=== PATIENT | male | born 1965 | race African-American/Black ===

== ENCOUNTER 2019-06-17 22:54 | Inpatient (IN) | payer MEDICARE, MEDICAID ==
[~2019-06-17] VITALS: Ht 167.6 cm; Wt 117.2 kg
[~2019-06-17 22:54] MED LIST: GLIP5TAB12 PO
[2019-06-17] MEDS ORDERED: FUROSEMIDE 40MG/4ML VIAL IV ONE (23:15)
[2019-06-17] MEDS ORDERED: ASPIRIN 81MG TABLET PO ONE (23:15)
[2019-06-17 23:56] LABS: BASOPHILS % 0.5 % (0.0-2.0); EOSINOPHILS % 2.1 % (0.0-5.0); HEMATOCRIT. 29.6 % (42.0-52.0); HEMOGLOBIN. 10.3 g/dL (14.0-18.0); LYMPHOCYTES % 13.3 % (20.0-50.0); MEAN CORPUSCULAR HEMOGLOBIN 30.2 pg (28.0-32.0); MEAN CORPUSCULAR VOLUME 87.1 fL (80.0-94.0); MEAN PLATELET VOLUME 7.6 fl (7.4-10.4); MONOCYTES % 8.5 % (2.0-8.0); NEUTROPHILS % 75.6 % (40.0-76.0); PLATELET 405 x1000/uL (130-400); RED CELL DISTRIBUTION WIDTH 13.6 % (11.6-14.6)
[2019-06-18] VITALS (7 sets, daily range): BP systolic 156–211; BP diastolic 86–114
[2019-06-18] LABS: CHLORIDE 113 mEq/L (98-107)
[2019-06-18 00:03] LABS: INR 0.9; PARTIAL THROMBOPLASTIN TIME 24.7 sec (23.4-31.0); PROTHROMBIN TIME 9.8 sec (9.6-11.0)
[2019-06-18 00:04] LABS: ETHANOL BLOOD < 10 mg/dL
[2019-06-18] MEDS ORDERED: HYDRALAZINE 20MG/ML VIAL IV ONE (01:45)
[2019-06-18 01:47] LABS: CLARITY URINE CLEAR (CLEAR); COLOR URINE YELLOW (YELLOW); KETONES URINE NEGATIVE (NEGATIVE); LEUKOCYTE ESTERASE URINE NEGATIVE (NEGATIVE); NITRITE URINE NEGATIVE (NEGATIVE); OCCULT BLOOD URINE 2+ (NEGATIVE); PROTEIN URINE 4+ (NEGATIVE); SPECIFIC GRAVITY URINE 1.014 (1.005-1.030); UROBILINOGEN URINE 0.2 E.U./dL (0.2-1.0)
[2019-06-18 02:14] LABS: *AMPHETAMINES SCREEN URINE NEGATIVE (NEGATIVE); *BARBITURATES SCREEN URINE NEGATIVE (NEGATIVE); *BENZODIAZEPINES SCREEN URINE NEGATIVE (NEGATIVE); *COCAINE SCREEN URINE NEGATIVE (NEGATIVE)
[2019-06-18 02:15] LABS: CANNABINOID URINE SCREEN NEGATIVE (NEGATIVE); METHADONE URINE SCREEN NEGATIVE (NEGATIVE); OPIATES URINE SCREEN NEGATIVE (NEGATIVE); PHENCYCLIDINE URINE SCREEN NEGATIVE (NEGATIVE)
[2019-06-18] MEDS ORDERED: HYDR25TA PO (04:56)
[2019-06-18] MEDS ORDERED: INSU100I38 SQ (04:56)
[2019-06-18] MEDS ORDERED: CLOP75TA33 PO (04:56)
[2019-06-18] MEDS ORDERED: GEMF600T5 PO (04:56)
[2019-06-18] MEDS ORDERED: CHOL100022 PO (04:56)
[2019-06-18] MEDS ORDERED: PY25 PO (04:56)
[2019-06-18] MEDS ORDERED: AMLO5TAB88 PO (04:56)
[2019-06-18] MEDS ORDERED: VALS160T28 PO (04:56)
[2019-06-18] MEDS ORDERED: FOLI-43 PO (04:56)
[2019-06-18] MEDS ORDERED: ATOR20TA65 PO (04:56)
[2019-06-18] MEDS ORDERED: METF-415 PO (04:56)
[2019-06-18] MEDS ORDERED: HYDROCODONE/ACETAMINOPHEN 5/325MG TABLET PO PRN (05:30)
[2019-06-18] MEDS ORDERED: DEXTROSE 50% WATER 50ML SYRINGE IV PRN (05:30)
[2019-06-18] MEDS: BLOOD SUGAR DIAGNOSTIC STRIP TEST SCH ×4 (06:22→20:54)
[2019-06-18 08:33] LABS: BASOPHILS % 0.7 % (0.0-2.0); CREATINE KINASE 658 IU/L (39-308); EOSINOPHILS % 2.3 % (0.0-5.0); HEMATOCRIT. 31.4 % (42.0-52.0); HEMOGLOBIN. 10.9 g/dL (14.0-18.0); LYMPHOCYTES % 13.2 % (20.0-50.0); MEAN CORPUSCULAR HEMOGLOBIN 30.3 pg (28.0-32.0); MEAN CORPUSCULAR VOLUME 87.1 fL (80.0-94.0); MEAN PLATELET VOLUME 7.8 fl (7.4-10.4); NEUTROPHILS % 74.8 % (40.0-76.0); PLATELET 392 x1000/uL (130-400); RED CELL DISTRIBUTION WIDTH 13.6 % (11.6-14.6)
[2019-06-18 08:34] LABS: CREATINE KINASE MB FRACTION 3.4 ng/mL (0.5-3.6)
[2019-06-18] MEDS: FUROSEMIDE 40MG/4ML VIAL IVP SCH ×2 (08:44→17:09)
[2019-06-18] MEDS: HEPARIN 5000 UNITS/ML VIAL SUBCUT SCH ×2 (08:52→20:55)
[2019-06-18] MEDS: INSULIN LISPRO 100 UNITS/ML SUBCUT SCH ×4 (08:56→21:14)
[2019-06-18] MEDS ORDERED: AMLODIPINE 5MG TABLET PO SCH (09:00)
[2019-06-18] MEDS: ASPIRIN 81MG EC TABLET PO SCH (09:33)
[2019-06-18] MEDS: POTASSIUM CHLORIDE 20MEQ TABLET SR PO SCH (09:33)
[2019-06-18] MEDS: LISINOPRIL 2.5MG TABLET PO SCH (09:34)
[2019-06-18 17:06] LABS: CREATINE KINASE MB FRACTION 3.2 ng/mL (0.5-3.6); T4 FREE 0.89 ng/dL (0.76-1.46)
[2019-06-18] MEDS: HYDRALAZINE 20MG/ML VIAL IV PRN (17:09)
[2019-06-19] VITALS: BP 155/87
[2019-06-19 06:25] VITALS: BP 203/112
[2019-06-19] MEDS: HYDRALAZINE 20MG/ML VIAL IV PRN (06:27)
[2019-06-19 07:13] VITALS: BP 177/96
[2019-06-19] MEDS: BLOOD SUGAR DIAGNOSTIC STRIP TEST SCH ×4 (07:13→20:42)
[2019-06-19 07:49] LABS: BASOPHILS % 0.5 % (0.0-2.0); EOSINOPHILS % 2.9 % (0.0-5.0); HEMATOCRIT. 32.5 % (42.0-52.0); HEMOGLOBIN. 11.2 g/dL (14.0-18.0); LYMPHOCYTES % 16.7 % (20.0-50.0); MEAN CORPUSCULAR HEMOGLOBIN 30.1 pg (28.0-32.0); MEAN CORPUSCULAR VOLUME 87.9 fL (80.0-94.0); MEAN PLATELET VOLUME 8.1 fl (7.4-10.4); MONOCYTES % 7.5 % (2.0-8.0); NEUTROPHILS % 72.4 % (40.0-76.0); PLATELET 413 x1000/uL (130-400); RED CELL DISTRIBUTION WIDTH 13.4 % (11.6-14.6)
[2019-06-19] MEDS ORDERED: CLONIDINE 0.1MG TABLET PO PRN (08:00)
[2019-06-19] MEDS: FUROSEMIDE 40MG/4ML VIAL IVP SCH ×2 (09:03→18:34)
[2019-06-19] MEDS: IBUPROFEN 800MG TABLET PO PRN ×2 (09:03→20:35)
[2019-06-19] MEDS: HEPARIN 5000 UNITS/ML VIAL SUBCUT SCH ×2 (09:03→20:35)
[2019-06-19] MEDS: POTASSIUM CHLORIDE 20MEQ TABLET SR PO SCH (09:04)
[2019-06-19] MEDS: AMLODIPINE 5MG TABLET PO SCH ×2 (09:04→20:35)
[2019-06-19] MEDS: INSULIN LISPRO 100 UNITS/ML SUBCUT SCH ×4 (09:06→21:01)
[2019-06-19] MEDS: ASPIRIN 81MG EC TABLET PO SCH (09:07)
[2019-06-19] MEDS: LISINOPRIL 2.5MG TABLET PO SCH (09:07)
[2019-06-19 12:00] VITALS: BP 155/75
[2019-06-19 16:00] VITALS: BP 172/66
[2019-06-19 20:00] VITALS: BP 162/77
[2019-06-20] VITALS: BP 164/96
[2019-06-20 04:00] VITALS: BP 169/87
[2019-06-20] MEDS: BLOOD SUGAR DIAGNOSTIC STRIP TEST SCH (07:19)
[2019-06-20 08:00] VITALS: BP 152/73
[2019-06-20] MEDS: FUROSEMIDE 40MG/4ML VIAL IVP SCH (08:55)
[2019-06-20] MEDS: IBUPROFEN 800MG TABLET PO PRN (08:58)
[2019-06-20] MEDS: HEPARIN 5000 UNITS/ML VIAL SUBCUT SCH (08:59)
[2019-06-20] MEDS: AMLODIPINE 5MG TABLET PO SCH (08:59)
[2019-06-20] MEDS: ASPIRIN 81MG EC TABLET PO SCH (08:59)
[2019-06-20] MEDS: LISINOPRIL 2.5MG TABLET PO SCH (08:59)
[2019-06-20] MEDS: POTASSIUM CHLORIDE 20MEQ TABLET SR PO SCH (08:59)
[2019-06-20] MEDS: INSULIN LISPRO 100 UNITS/ML SUBCUT SCH (09:01)
[2019-06-20] MEDS ORDERED: LISI2.5T47 PO (10:51)
[2019-06-20] MEDS ORDERED: ASPI-1158 PO ×2 (10:51→11:05)
[2019-06-20] MEDS ORDERED: FURO40TA5 MT ×2 (10:51→11:05)
[2019-06-20] MEDS ORDERED: AMLO10TA80 MT ×2 (10:51→11:05)
[2019-06-20] MEDS ORDERED: LISI2.5T47 MT (11:05)
[2019-06-20 11:20] VITALS: BP 152/115
== END 2019-06-20 12:00 | disposition home health service (06) | DRG 291 ==
LOC: ER 22:54 → EDBEDREQ 06-18 01:00 → 6WST 06-18 01:40 → EDBEDREQ 06-18 01:43 → EDBEDREQTM 06-18 01:43 → ENRESERV 06-18 03:15
PROVIDERS: ADMIT Internal Medicine; ATTEND Internal Medicine
DX: I13.0 Hypertensive heart and chronic kidney disease with heart failure and stage 1 through stage 4 chronic kidney disease, or unspecified chronic kidney disease (principal); I50.43 Acute on chronic combined systolic (congestive) and diastolic (congestive) heart failure; E44.1 Mild protein-calorie malnutrition; Z68.41 Body mass index [BMI] 40.0-44.9, adult; E11.22 Type 2 diabetes mellitus with diabetic chronic kidney disease; E03.9 Hypothyroidism, unspecified; I25.10 Atherosclerotic heart disease of native coronary artery without angina pectoris; N18.9 Chronic kidney disease, unspecified; I50.82 Biventricular heart failure; F31.9 Bipolar disorder, unspecified; N50.819 Testicular pain, unspecified; E66.09 Other obesity due to excess calories; F41.9 Anxiety disorder, unspecified; Z79.4 Long term (current) use of insulin; Z86.73 Personal history of transient ischemic attack (TIA), and cerebral infarction without residual deficits; Z82.49 Family history of ischemic heart disease and other diseases of the circulatory system; Z82.41 Family history of sudden cardiac death; Z88.0 Allergy status to penicillin
CPT/HCPCS: 36415; 71045; 80048; 80053; 80061; 80305; 80320; 81003; 82550; 82553; 82962; 83735; 83880; 84439; 84443; 84481; 84484; 85025; 93005; 93306; 93970; 96374; 96375; 99285; J0360; J1644; J1815; J1940; G0480

== ENCOUNTER 2021-07-02 22:37 | Inpatient (IN) | payer MEDICARE, MEDICAID ==
[~2021-07-02] VITALS: Ht 167.6 cm; Wt 85.3 kg
[~2021-07-02 22:37] MED LIST changes: +AMLO10TA80 MT; +ASPI-1406 PO; +ATOR20TA65 PO; +CHOL100022 PO; +CLOP75TA33 PO; +FOLI-43 PO; +FURO40TA5 MT; +GEMF600T90 PO; +INSU100I38 SQ; +LISI2.5T47 MT; +METF-415 PO; +PY25 PO; +VALS160T28 PO
[2021-07-02] MEDS ORDERED: ENALAPRIL 2.5MG/2ML VIAL 2ML IV ONE (23:00)
[2021-07-02] MEDS ORDERED: ENALAPRIL 1.25MG/ML VIAL 1ML IV NR (23:30)
[2021-07-03 00:13] LABS: BG BASE EXCESS -5.4 mmol/L (-2.0-2.0); BG CARBOXYHEMOGLOBIN 1.6 % (0.5-1.5); BG DEOXYHEMOGLOBIN 56.2 % (0.0-5.0); BG FRACTION INSPIRED OXYGEN 36; BG HCO3 ACT 20.6 mmol/L (22.0-26.0); BG METHEMOGLOBIN 0.3 % (0.0-1.5); BG OXYGEN SATURATION 42.7 % (92.0-98.5); BG OXYHEMOGLOBIN 41.9 % (94.0-97.0); BG PCO2 42.7 mmHg (35.0-45.0); BG PH 7.302 (7.350-7.450); BG PO2 < 30.3 mmHg (75.0-100.0); BG TOTAL HEMOGLOBIN 9.5 g/dL (12.0-18.0); BG VENT MODE NASAL CANNULA
[2021-07-03] MEDS ORDERED: MEROPENEM 1,000 MG in SODIUM CHLORIDE 0.9% 100 ML IV ONE (00:15)
[2021-07-03] MEDS ORDERED: VANCOMYCIN 1 G PREMIX 200 ML IV ONE (00:15)
[2021-07-03 00:46] LABS: HEMATOCRIT. 22.4 % (42.0-52.0); HEMOGLOBIN. 7.2 g/dL (14.0-18.0); MEAN CORPUSCULAR HEMOGLOBIN 28.9 pg (28.0-32.0); MEAN CORPUSCULAR VOLUME 89.4 fL (80.0-94.0); MEAN PLATELET VOLUME 7.7 fl (7.4-10.4); PLATELET 335 x1000/uL (130-400); RED BLOOD CELL COUNT 2.51 mill/uL (4.7-6.1); RED CELL DISTRIBUTION WIDTH 14.2 % (11.6-14.6)
[2021-07-03 00:54] LABS: CHLORIDE 108 mEq/L (98-107)
[2021-07-03 02:45] LABS: PLATELET ESTIMATE NORMAL
[2021-07-03] MEDS ORDERED: HYDRALAZINE 20MG/ML VIAL IV PRN (04:45)
[2021-07-03] MEDS ORDERED: CLONIDINE 0.2MG TABLET PO SCH (05:00)
[2021-07-03] MEDS ORDERED: AZITHROMYCIN 500 MG in DEXT 5% WATER 250 ML IV SCH (08:30)
[2021-07-03] MEDS ORDERED: ACETAMINOPHEN 325MG TABLET PO PRN (08:30)
[2021-07-03] MEDS ORDERED: ONDANSETRON HCL 4MG/2ML INJ IV PRN (08:30)
[2021-07-03] MEDS ORDERED: HYDRALAZINE HCL 100MG TABLET PO ONE (08:30)
[2021-07-03] MEDS ORDERED: FUROSEMIDE 100MG/10ML VIAL IVP NR (08:58)
[2021-07-03] MEDS ORDERED: SODIUM POLYSTYRENE SULFONATE 15 G/60 ML BOT PO NR (08:58)
[2021-07-03] MEDS ORDERED: NIFEDIPINE XL 60MG TAB PO SCH (09:00)
[2021-07-03] MEDS ORDERED: DEXTROSE 50% WATER 50ML SYRINGE IV NR (09:15)
[2021-07-03] MEDS ORDERED: INSULIN REGULAR (HUMULIN R) UD 100 UNITS/ML SYR IV NR (10:00)
[2021-07-03] MEDS ORDERED: CEFTRIAXONE 1,000 MG in DEXTROSE 5% WATER 50 ML IV SCH ×2 (10:00→16:00)
[2021-07-03 12:00] VITALS: BP 186/97
[2021-07-03] MEDS ORDERED: VANCOMYCIN 500 MG PREMIX 100 ML IV SCH (13:00)
[2021-07-03] MEDS: VANCOMYCIN 1 G PREMIX 200 ML IV NR ×2 (14:00→15:11)
[2021-07-03] MEDS: HYDRALAZINE HCL 100MG TABLET PO SCH ×2 (14:00→22:00)
[2021-07-03 14:40] VITALS: BP 186/97
[2021-07-03] MEDS: CLONIDINE 0.1MG TABLET PO SCH ×2 (15:11→22:16)
[2021-07-03 16:00] VITALS: BP 155/82
[2021-07-03] MEDS: NIFEDIPINE XL 60MG TAB PO SCH (17:58)
[2021-07-03] MEDS: LEVOFLOXACIN 500MG TABLET PO SCH (17:59)
[2021-07-03] MEDS ORDERED: IPRATROPIUM/ALBUTEROL 0.5-3(2.5)MG/3ML NEB HHN PRN (18:00)
[2021-07-03 20:00] VITALS: BP 154/70
[2021-07-03] MEDS ORDERED: EPOETIN ALFA 10000UNITS/ML VIAL SUBCUT SCH (21:00)
[2021-07-03] MEDS: IPRATROPIUM/ALBUTEROL 0.5-3(2.5)MG/3ML NEB HHN SCH (22:04)
[2021-07-04] VITALS (9 sets, daily range): BP systolic 115–145; BP diastolic 57–85
[2021-07-04] MEDS: IPRATROPIUM/ALBUTEROL 0.5-3(2.5)MG/3ML NEB HHN SCH ×4 (02:40→20:58)
[2021-07-04] MEDS: HYDRALAZINE HCL 100MG TABLET PO SCH (06:00)
[2021-07-04] MEDS: CLONIDINE 0.1MG TABLET PO SCH ×3 (06:02→21:51)
[2021-07-04 06:49] LABS: MEAN CORPUSCULAR HEMOGLOBIN 29.5 pg (28.0-32.0); MEAN CORPUSCULAR VOLUME 88.5 fL (80.0-94.0); MEAN PLATELET VOLUME 7.4 fl (7.4-10.4); PLATELET 220 x1000/uL (130-400); RED BLOOD CELL COUNT 2.02 mill/uL (4.7-6.1); RED CELL DISTRIBUTION WIDTH 14.6 % (11.6-14.6)
[2021-07-04 06:59] LABS: HEPATITIS B SURFACE ANTIGEN NEGATIVE
[2021-07-04 07:09] LABS: CHLORIDE 109 mEq/L (98-107)
[2021-07-04 07:26] LABS: PHOSPHORUS 6.4 mg/dL (2.5-4.9)
[2021-07-04] MEDS ORDERED: FUROSEMIDE 40MG/4ML VIAL IVP SCH (08:00)
[2021-07-04] MEDS ORDERED: SODIUM POLYSTYRENE SULFONATE 15 G/60 ML BOT PO SCH (08:00)
[2021-07-04 08:34] LABS: HEMATOCRIT. 17.9 % (42.0-52.0)
[2021-07-04] MEDS: NIFEDIPINE XL 60MG TAB PO SCH ×2 (09:00→21:00)
[2021-07-04] MEDS ORDERED: AZITHROMYCIN 500 MG in DEXT 5% WATER 250 ML IV SCH (09:00)
[2021-07-04] MEDS ORDERED: VANCOMYCIN 1250MG in DEXTROSE 5% WATER 250ML IV NR (14:00)
[2021-07-04] MEDS ORDERED: CHLORPROMAZINE HCL 25 MG TABLET PO PRN (16:00)
[2021-07-04 19:50] LABS: HEMATOCRIT 20.9 % (42.0-52.0)
[2021-07-04 20:06] LABS: PLATELET ESTIMATE NORMAL
[2021-07-04] MEDS ORDERED: FAMOTIDINE 20MG TABLET PO SCH (23:00)
[2021-07-04] MEDS: FAMOTIDINE 20MG TABLET PO SCH (23:29)
[2021-07-05 00:01] VITALS: BP 117/75
[2021-07-05] MEDS: IPRATROPIUM/ALBUTEROL 0.5-3(2.5)MG/3ML NEB HHN SCH ×4 (01:55→21:14)
[2021-07-05 04:00] VITALS: BP 171/84
[2021-07-05] MEDS: CLONIDINE 0.1MG TABLET PO SCH ×3 (05:47→22:25)
[2021-07-05 08:00] VITALS: BP 145/63
[2021-07-05] MEDS: NIFEDIPINE XL 60MG TAB PO SCH ×2 (09:00→21:00)
[2021-07-05 10:21] LABS: BASOPHILS % 0.2 % (0.0-2.0); EOSINOPHILS % 1.9 % (0.0-5.0); HEMATOCRIT. 22.9 % (42.0-52.0); HEMOGLOBIN. 7.8 g/dL (14.0-18.0); LYMPHOCYTES % 8.2 % (20.0-50.0); MEAN CORPUSCULAR HEMOGLOBIN 30.3 pg (28.0-32.0); MEAN CORPUSCULAR VOLUME 89.1 fL (80.0-94.0); MONOCYTES % 10.1 % (2.0-8.0); NEUTROPHILS % 79.6 % (40.0-76.0); PLATELET 262 x1000/uL (130-400); RED BLOOD CELL COUNT 2.57 mill/uL (4.7-6.1); RED CELL DISTRIBUTION WIDTH 14.8 % (11.6-14.6)
[2021-07-05] MEDS: LEVOFLOXACIN 500MG TABLET PO SCH (11:15)
[2021-07-05 12:00] VITALS: BP 162/81
[2021-07-05] MEDS ORDERED: BACLOFEN 10MG TABLET PO PRN (14:15)
[2021-07-05] MEDS ORDERED: LEVO250T58 MT (14:35)
[2021-07-05 16:00] VITALS: BP 148/78
[2021-07-05 20:00] VITALS: BP 180/95
[2021-07-05] MEDS ORDERED: EPOETIN ALFA-EPBX 10,000 UNIT/ML VIAL SUBCUT SCH (21:00)
[2021-07-05] MEDS: FAMOTIDINE 20MG TABLET PO SCH (21:00)
[2021-07-06] VITALS: BP 176/69
[2021-07-06 04:00] VITALS: BP 150/87
[2021-07-06] MEDS: CLONIDINE 0.1MG TABLET PO SCH ×2 (06:00→13:21)
[2021-07-06 08:00] VITALS: BP 191/97
[2021-07-06 08:43] LABS: BASOPHILS % 0.3 % (0.0-2.0); EOSINOPHILS % 3.3 % (0.0-5.0); HEMATOCRIT. 21.1 % (42.0-52.0); HEMOGLOBIN. 7.3 g/dL (14.0-18.0); LYMPHOCYTES % 11.6 % (20.0-50.0); MEAN CORPUSCULAR HEMOGLOBIN 30.4 pg (28.0-32.0); MEAN CORPUSCULAR VOLUME 88.1 fL (80.0-94.0); MEAN PLATELET VOLUME 7.5 fl (7.4-10.4); NEUTROPHILS % 72.8 % (40.0-76.0); PLATELET 284 x1000/uL (130-400); RED CELL DISTRIBUTION WIDTH 14.3 % (11.6-14.6)
[2021-07-06 08:49] LABS: PHOSPHORUS 6.2 mg/dL (2.5-4.9)
[2021-07-06] MEDS: IPRATROPIUM/ALBUTEROL 0.5-3(2.5)MG/3ML NEB HHN SCH ×3 (08:56→14:49)
[2021-07-06] MEDS: NIFEDIPINE XL 60MG TAB PO SCH ×2 (09:00→09:23)
[2021-07-06 12:00] VITALS: BP 184/90
[2021-07-06] MEDS ORDERED: CLONIDINE 0.1MG TABLET PO PRN (13:00)
[2021-07-06 14:19] VITALS: BP 184/90
== END 2021-07-06 15:50 | disposition home or self-care (01) | DRG 871 ==
LOC: ER 22:37 → MICUSO 07-03 01:18 → EDBEDREQ 07-03 01:36 → EDBEDREQTM 07-03 01:36 → 7EST 07-03 12:17
PROVIDERS: ADMIT Internal Medicine; ATTEND Internal Medicine
PROC: 5A1D70Z Performance of Urinary Filtration, Intermittent, Less than 6 Hours Per Day (ICD-10-PCS; 2021-07-03)
PROC: 5A1D70Z Performance of Urinary Filtration, Intermittent, Less than 6 Hours Per Day (ICD-10-PCS; 2021-07-03)
PROC: 30233N1 Transfusion of Nonautologous Red Blood Cells into Peripheral Vein, Percutaneous Approach (ICD-10-PCS; principal; 2021-07-04)
PROC: 5A1D70Z Performance of Urinary Filtration, Intermittent, Less than 6 Hours Per Day (ICD-10-PCS; 2021-07-04)
PROC: 5A1D70Z Performance of Urinary Filtration, Intermittent, Less than 6 Hours Per Day (ICD-10-PCS; 2021-07-05)
DX: A41.9 Sepsis, unspecified organism (principal); J18.9 Pneumonia, unspecified organism; J96.01 Acute respiratory failure with hypoxia; N18.6 End stage renal disease; I50.43 Acute on chronic combined systolic (congestive) and diastolic (congestive) heart failure; J44.0 Chronic obstructive pulmonary disease with (acute) lower respiratory infection; E44.1 Mild protein-calorie malnutrition; I13.2 Hypertensive heart and chronic kidney disease with heart failure and with stage 5 chronic kidney disease, or end stage renal disease; I16.0 Hypertensive urgency; E11.22 Type 2 diabetes mellitus with diabetic chronic kidney disease; D64.9 Anemia, unspecified; E03.9 Hypothyroidism, unspecified; E78.5 Hyperlipidemia, unspecified; E87.5 Hyperkalemia; Z82.49 Family history of ischemic heart disease and other diseases of the circulatory system; Z99.2 Dependence on renal dialysis; Z88.0 Allergy status to penicillin; Z79.899 Other long term (current) drug therapy; Z79.4 Long term (current) use of insulin; Z68.30 Body mass index [BMI] 30.0-30.9, adult
CPT/HCPCS: 36415; 36600; 71045; 80048; 80053; 80202; 82375; 82805; 82962; 83605; 83735; 83880; 84100; 84484; 85014; 85018; 85025; 85379; 86705; 86709; 86803; 86850; 86900; 86920; 87340; 87426; 93005; 94640; 97162; 99291; J0360; J0456; J0696; J0885; J1815; J1940; J2185; J3370; J3490; J7040; J7050; J7060; P9016; Q0161; U0003; U0005

== ENCOUNTER 2021-09-28 23:32 | Emergency (ER) | payer MEDICARE, MEDICAID ==
[~2021-09-28] VITALS: Ht 175.3 cm; Wt 93.0 kg
[~2021-09-28 23:32] MED LIST changes: +LEVO250T58 MT
[2021-09-29 00:40] VITALS: BP 170/99
== END 2021-09-29 00:42 | disposition home or self-care (01) ==
LOC: ER 23:32
DX: I12.0 Hypertensive chronic kidney disease with stage 5 chronic kidney disease or end stage renal disease (principal); E11.22 Type 2 diabetes mellitus with diabetic chronic kidney disease; Z99.2 Dependence on renal dialysis; Z79.899 Other long term (current) drug therapy
CPT/HCPCS: 99283

== ENCOUNTER 2022-01-26 17:44 | Inpatient (IN) | payer MEDICARE, MEDICAID ==
[~2022-01-26] VITALS: Ht 172.7 cm; Wt 80.7 kg
[~2022-01-26 17:44] MED LIST changes: +ATOR20TA PO; -ATOR20TA65 PO; -CHOL100022 PO; +CLOP75TA15 PO; -CLOP75TA33 PO; -FURO40TA5 MT; +FURO40TA5 PO; -GEMF600T90 PO; -GLIP5TAB12 PO; -INSU100I38 SQ; +ISOS1TAB MT; +LABE200T9 PO; -LEVO250T58 MT; +LISI-186 PO; -LISI2.5T47 MT; -METF-415 PO; +SEVE800T8 PO; -VALS160T28 PO
[2022-01-26] MEDS ORDERED: MAGNESIUM/ALUMINUM HYDROXIDE/SIMETHICONE 30ML UDC PO STA (19:05)
[2022-01-26] MEDS ORDERED: FAMOTIDINE 20MG/2ML VIAL IV STA (19:05)
[2022-01-26] MEDS ORDERED: ONDANSETRON 4MG ODT PO STA (19:05)
[2022-01-26 21:09] LABS: BASOPHILS % 0.5 % (0.0-2.0); EOSINOPHILS % 1.1 % (0.0-5.0); HEMATOCRIT. 26.8 % (42.0-52.0); HEMOGLOBIN. 8.6 g/dL (14.0-18.0); LYMPHOCYTES % 8.3 % (20.0-50.0); MEAN CORPUSCULAR HEMOGLOBIN 27.9 pg (28.0-32.0); MEAN CORPUSCULAR VOLUME 87.4 fL (80.0-94.0); MEAN PLATELET VOLUME 7.3 fl (7.4-10.4); MONOCYTES % 10.4 % (2.0-8.0); NEUTROPHILS % 79.7 % (40.0-76.0); PLATELET 333 x1000/uL (130-400); RED BLOOD CELL COUNT 3.07 mill/uL (4.7-6.1); RED CELL DISTRIBUTION WIDTH 17.7 % (11.6-14.6)
[2022-01-26 21:17] LABS: INR 1.1; PROTHROMBIN TIME 11.4 sec (9.6-11.0)
[2022-01-26 21:18] LABS: CHLORIDE 99 mEq/L (98-107)
[2022-01-26] MEDS ORDERED: HYDRALAZINE 20MG/ML VIAL IV ONE (23:00)
[2022-01-26] MEDS ORDERED: MORPHINE SULFATE 4 MG/ML CPJ (NOT FOR IM USE) IV ONE (23:00)
[2022-01-26] MEDS ORDERED: METOCLOPRAMIDE HCL 10MG/2ML VIAL IV ONE (23:00)
[2022-01-27] MEDS ORDERED: HYDRALAZINE 20MG/ML VIAL IV PRN (01:30)
[2022-01-27] MEDS ORDERED: HYDROCODONE/ACETAMINOPHEN 5/325MG TABLET PO PRN (01:30)
[2022-01-27] MEDS ORDERED: CLONIDINE 0.1MG TABLET PO PRN (01:30)
[2022-01-27] MEDS ORDERED: ACETAMINOPHEN 325MG TABLET PO PRN ×2 (01:30)
[2022-01-27] MEDS ORDERED: ONDANSETRON HCL 4MG/2ML INJ IV PRN (01:30)
[2022-01-27] MEDS ORDERED: GUAIFENESIN 200MG/10ML SUGAR FREE UDC PO PRN (01:30)
[2022-01-27 05:24] LABS: BASOPHILS % 0.5 % (0.0-2.0); HEMOGLOBIN. 9.2 g/dL (14.0-18.0); LYMPHOCYTES % 11.5 % (20.0-50.0); MEAN CORPUSCULAR HEMOGLOBIN 27.8 pg (28.0-32.0); MEAN CORPUSCULAR VOLUME 87.6 fL (80.0-94.0); MONOCYTES % 12.4 % (2.0-8.0); NEUTROPHILS % 74.6 % (40.0-76.0); PLATELET 333 x1000/uL (130-400); RED BLOOD CELL COUNT 3.31 mill/uL (4.7-6.1); RED CELL DISTRIBUTION WIDTH 17.2 % (11.6-14.6)
[2022-01-27 05:43] LABS: PHOSPHORUS 7.9 mg/dL (2.5-4.9)
[2022-01-27 06:58] LABS: CLARITY URINE CLEAR (CLEAR); COLOR URINE YELLOW (YELLOW); KETONES URINE TRACE (NEGATIVE); LEUKOCYTE ESTERASE URINE NEGATIVE (NEGATIVE); NITRITE URINE NEGATIVE (NEGATIVE); OCCULT BLOOD URINE 1+ (NEGATIVE); PROTEIN URINE 4+ (NEGATIVE); SPECIFIC GRAVITY URINE 1.017 (1.005-1.030); UROBILINOGEN URINE 0.2 E.U./dL (0.2-1.0)
[2022-01-27] MEDS: SEVELAMER CARBONATE 800 MG TABLET PO SCH ×3 (07:11→20:46)
[2022-01-27] MEDS ORDERED: DEXTROSE 50% WATER 50ML SYRINGE IV NR ×2 (07:30→08:00)
[2022-01-27] MEDS ORDERED: INSULIN REGULAR (HUMULIN R) 300UNITS/3ML VIAL IV NR ×2 (07:30→08:00)
[2022-01-27] MEDS ORDERED: SODIUM POLYSTYRENE SULFONATE 15 G/60 ML BOT PO NR (08:00)
[2022-01-27] MEDS ORDERED: CALCIUM CHLORIDE 1,000 MG in DEXT 5% WATER 90 ML IV NR (08:00)
[2022-01-27] MEDS ORDERED: ALBUTEROL (0.083%) 2.5MG/3ML NEB HHN NR (08:00)
[2022-01-27] MEDS ORDERED: CALCIUM CHLORIDE 1GM/10ML SYR IV NR (08:00)
[2022-01-27] MEDS: ISOSORB DINIT/HYDRALAZINE HCL 20/37.5MG TABLET PO SCH ×2 (16:15→16:31)
[2022-01-27] MEDS: FOLIC ACID 1MG TABLET PO SCH (16:15)
[2022-01-27] MEDS: AMLODIPINE 10MG TABLET PO SCH (16:15)
[2022-01-27] MEDS: LABETALOL HCL 200MG TABLET PO SCH ×2 (16:16→21:28)
[2022-01-27] MEDS: ENOXAPARIN 30MG/0.3ML SYR SUBCUT SCH (16:16)
[2022-01-27] MEDS ORDERED: ALBUTEROL (0.083%) 2.5MG/3ML NEB ONE (16:39)
[2022-01-27] MEDS ORDERED: IPRATROPIUM BROMIDE (0.02%) 0.5MG/2.5ML NEB ONE (16:39)
[2022-01-27] MEDS ORDERED: CLONIDINE 0.1MG TABLET PO NR (19:30)
[2022-01-27] MEDS ORDERED: NALOXONE HCL 0.4MG/ML VIAL IV PRN (20:45)
[2022-01-27] MEDS: CLONIDINE 0.2MG TABLET PO SCH (22:00)
[2022-01-28] MEDS: CLONIDINE 0.1MG TABLET PO PRN ×2 (03:03→13:09)
[2022-01-28 04:00] VITALS: BP 160/90
[2022-01-28] MEDS ORDERED: ATOR20TA65 PO (05:49)
[2022-01-28] MEDS ORDERED: CLOP75TA33 PO (05:49)
[2022-01-28] MEDS ORDERED: BACL-141 PO (05:56)
[2022-01-28] MEDS ORDERED: LABE100T5 PO (05:56)
[2022-01-28] MEDS ORDERED: CLON0.1T PO (05:56)
[2022-01-28] MEDS ORDERED: HYDR-4133 PO (05:56)
[2022-01-28] MEDS: CLONIDINE 0.2MG TABLET PO SCH ×2 (06:24→13:09)
[2022-01-28 08:00] VITALS: BP 168/81
[2022-01-28] MEDS: SEVELAMER CARBONATE 800 MG TABLET PO SCH ×2 (08:21→13:05)
[2022-01-28] MEDS: AMLODIPINE 10MG TABLET PO SCH (08:21)
[2022-01-28] MEDS: FOLIC ACID 1MG TABLET PO SCH (08:21)
[2022-01-28] MEDS: LABETALOL HCL 200MG TABLET PO SCH ×2 (08:21→08:43)
[2022-01-28] MEDS: ENOXAPARIN 30MG/0.3ML SYR SUBCUT SCH ×2 (08:22→08:44)
[2022-01-28 09:35] LABS: BASOPHILS % 0.7 % (0.0-2.0); HEMATOCRIT. 29.5 % (42.0-52.0); HEMOGLOBIN. 9.6 g/dL (14.0-18.0); LYMPHOCYTES % 13.9 % (20.0-50.0); MEAN CORPUSCULAR HEMOGLOBIN 28.2 pg (28.0-32.0); MEAN CORPUSCULAR VOLUME 86.8 fL (80.0-94.0); MEAN PLATELET VOLUME 7.5 fl (7.4-10.4); NEUTROPHILS % 73.4 % (40.0-76.0); PLATELET 337 x1000/uL (130-400); RED BLOOD CELL COUNT 3.39 mill/uL (4.7-6.1); RED CELL DISTRIBUTION WIDTH 17.3 % (11.6-14.6)
[2022-01-28] MEDS ORDERED: SODIUM POLYSTYRENE SULFONATE 15 G/60 ML BOT PO SCH (10:00)
[2022-01-28 10:39] LABS: HEPATITIS B SURFACE ANTIGEN NEGATIVE
[2022-01-28 12:00] VITALS: BP 175/87
[2022-01-28] MEDS ORDERED: SODI15OR5 PO (13:39)
[2022-01-28] MEDS ORDERED: CLON0.2T PO (13:39)
[2022-01-28 13:55] VITALS: BP 156/83
== END 2022-01-28 14:50 | disposition home or self-care (01) | DRG 640 ==
LOC: ER 17:44 → MICUSO 23:50 → SUPCPDRO 01-27 01:23 → 7WST 01-27 12:43 → MICUSO 01-27 12:49 → 7WST 01-28 03:59
PROVIDERS: ADMIT Internal Medicine; ATTEND Internal Medicine
PROC: 5A1D70Z Performance of Urinary Filtration, Intermittent, Less than 6 Hours Per Day (ICD-10-PCS; principal; 2022-01-27)
DX: E87.5 Hyperkalemia (principal); N18.6 End stage renal disease; E46 Unspecified protein-calorie malnutrition; I16.1 Hypertensive emergency; I12.0 Hypertensive chronic kidney disease with stage 5 chronic kidney disease or end stage renal disease; E78.5 Hyperlipidemia, unspecified; D63.1 Anemia in chronic kidney disease; E11.22 Type 2 diabetes mellitus with diabetic chronic kidney disease; D64.9 Anemia, unspecified; Z20.822 Contact with and (suspected) exposure to COVID-19; E11.40 Type 2 diabetes mellitus with diabetic neuropathy, unspecified; E11.21 Type 2 diabetes mellitus with diabetic nephropathy; E11.319 Type 2 diabetes mellitus with unspecified diabetic retinopathy without macular edema; H54.7 Unspecified visual loss; Z91.15 Patient's noncompliance with renal dialysis; Z88.0 Allergy status to penicillin; Z82.49 Family history of ischemic heart disease and other diseases of the circulatory system; Z79.02 Long term (current) use of antithrombotics/antiplatelets; Z68.27 Body mass index [BMI] 27.0-27.9, adult; Z99.2 Dependence on renal dialysis
CPT/HCPCS: 36415; 71045; 80048; 80053; 81003; 83735; 84100; 85025; 86705; 86709; 86803; 87340; 87426; 94644; 99285; C9803; J0360; J1650; J2270; J2765; J3490; J7060; Q0162

== ENCOUNTER 2022-02-05 05:47 | Emergency (ER) | payer MEDICARE, MEDICAID ==
[~2022-02-05] VITALS: Ht 180.3 cm; Wt 91.0 kg
[~2022-02-05 05:47] MED LIST changes: -ATOR20TA PO; +ATOR20TA65 PO; +BACL-141 PO; +CLON0.2T PO; -CLOP75TA15 PO; +CLOP75TA33 PO; -FURO40TA5 PO; -ISOS1TAB MT; -LISI-186 PO; -PY25 PO; +SODI15OR5 PO
[2022-02-05 05:49] VITALS: BP 170/63
== END 2022-02-05 06:30 | disposition left against medical advice (07) ==
LOC: ER 05:56
DX: R10.30 Lower abdominal pain, unspecified (principal); E11.22 Type 2 diabetes mellitus with diabetic chronic kidney disease; I12.0 Hypertensive chronic kidney disease with stage 5 chronic kidney disease or end stage renal disease; N18.6 End stage renal disease; Z99.2 Dependence on renal dialysis; Z79.82 Long term (current) use of aspirin; Z88.0 Allergy status to penicillin
CPT/HCPCS: 99283

== ENCOUNTER 2022-03-02 03:18 | Inpatient (IN) | payer MEDICARE, MEDICAID ==
[2022-03-02] VITALS (9 sets, daily range): BP systolic 177–192; BP diastolic 62–134
[~2022-03-02] VITALS: Ht 170.2 cm; Wt 95.3 kg
[2022-03-02] MEDS ORDERED: ALBUTEROL (0.083%) 2.5MG/3ML NEB HHN STA (03:29)
[2022-03-02] MEDS ORDERED: IPRATROPIUM BROMIDE (0.02%) 0.5MG/2.5ML NEB HHN STA (03:29)
[2022-03-02] MEDS ORDERED: METHYLPREDNISOLONE SOD SUCC 125 MG/2 ML VIAL IV STA (03:29)
[2022-03-02] MEDS ORDERED: ASPIRIN 81MG TABLET PO ONE (03:30)
[2022-03-02] MEDS ORDERED: FUROSEMIDE 40MG/4ML VIAL IV ONE (03:30)
[2022-03-02] MEDS ORDERED: NITROGLYCERIN 0.4MG TABLET SL SL PRN (03:30)
[2022-03-02] MEDS ORDERED: MAGNESIUM 2 G PREMIX 50 ML IV ONE (03:30)
[2022-03-02 03:50] LABS: MEAN CORPUSCULAR HEMOGLOBIN 27.2 pg (28.0-32.0); MEAN CORPUSCULAR VOLUME 85.5 fL (80.0-94.0); MEAN PLATELET VOLUME 6.5 fl (7.4-10.4); PLATELET 327 x1000/uL (130-400); RED CELL DISTRIBUTION WIDTH 18.6 % (11.6-14.6)
[2022-03-02 03:56] LABS: HEMATOCRIT. 20.6 % (42.0-52.0); HEMOGLOBIN. 6.5 g/dL (14.0-18.0)
[2022-03-02 04:05] LABS: CHLORIDE 104 mEq/L (98-107)
[2022-03-02] MEDS ORDERED: CEFTRIAXONE 1 G PREMIX 50 ML IV NR (04:45)
[2022-03-02] MEDS ORDERED: AZITHROMYCIN 500MG/250ML 250 ML IV SCH (04:45)
[2022-03-02] MEDS ORDERED: DEXTROSE 50% WATER 50ML SYRINGE IV ONE (05:00)
[2022-03-02] MEDS ORDERED: INSULIN REGULAR (HUMULIN R) 300UNITS/3ML VIAL IV ONE (05:00)
[2022-03-02] MEDS ORDERED: FUROSEMIDE 100MG/10ML VIAL IV STA (05:00)
[2022-03-02] MEDS ORDERED: SODIUM BICARBONATE 8.4% 1 MEQ/ML 50ML SYR IV ONE (05:00)
[2022-03-02] MEDS ORDERED: ALBUTEROL (0.083%) 2.5MG/3ML NEB HHN ONE (05:00)
[2022-03-02] MEDS ORDERED: CALCIUM CHLORIDE 1GM/10ML SYR IV ONE (05:00)
[2022-03-02 06:23] LABS: PLATELET ESTIMATE NORMAL
[2022-03-02] MEDS ORDERED: HYDROCODONE/ACETAMINOPHEN 5/325MG TABLET PO PRN (08:45)
[2022-03-02] MEDS ORDERED: IPRATROPIUM/ALBUTEROL 0.5-3(2.5)MG/3ML NEB NEB PRN (08:45)
[2022-03-02] MEDS ORDERED: ACETAMINOPHEN 325MG TABLET PO PRN ×2 (08:45)
[2022-03-02] MEDS ORDERED: ONDANSETRON HCL 4MG/2ML INJ IV PRN (08:45)
[2022-03-02] MEDS ORDERED: MAGNESIUM/ALUMINUM HYDROXIDE/SIMETHICONE 30ML UDC PO PRN (08:45)
[2022-03-02] MEDS ORDERED: GUAIFENESIN 200MG/10ML SUGAR FREE UDC PO PRN (08:45)
[2022-03-02] MEDS ORDERED: HYDRALAZINE 20MG/ML VIAL IV PRN (08:45)
[2022-03-02] MEDS ORDERED: NALOXONE HCL 0.4MG/ML VIAL IV PRN (09:30)
[2022-03-02] MEDS ORDERED: CEFTRIAXONE 1,000 MG in DEXTROSE 5% WATER 50 ML IV NR (11:00)
[2022-03-02] MEDS ORDERED: AZITHROMYCIN 250 MG in DEXT 5% WATER 250 ML IV NR (12:00)
[2022-03-02] MEDS: CLONIDINE 0.1MG TABLET PO PRN ×2 (12:58→22:32)
[2022-03-02 18:45] LABS: T4 FREE 0.95 ng/dL (0.76-1.46)
[2022-03-02 19:10] LABS: HEMATOCRIT 24.6 % (42.0-52.0); HEMOGLOBIN 8.2 g/dL (14.0-18.0)
[2022-03-02 19:36] LABS: CREATINE KINASE MB FRACTION 5.3 ng/mL (0.5-3.6)
[2022-03-02 19:54] LABS: HEPATITIS B SURFACE ANTIGEN NEGATIVE
[2022-03-02] MEDS: IPRATROPIUM/ALBUTEROL 0.5-3(2.5)MG/3ML NEB HHN SCH (20:42)
[2022-03-02] MEDS: METRONIDAZOLE 500MG TABLET PO SCH (22:26)
[2022-03-02] MEDS: GUAIFENESIN 600MG ER TABLET PO SCH (22:27)
[2022-03-03] VITALS (11 sets, daily range): BP systolic 128–187; BP diastolic 42–97
[2022-03-03 00:41] LABS: CREATINE KINASE MB FRACTION 4.5 ng/mL (0.5-3.6)
[2022-03-03] MEDS: IPRATROPIUM/ALBUTEROL 0.5-3(2.5)MG/3ML NEB HHN SCH ×4 (01:33→20:28)
[2022-03-03] MEDS: CLONIDINE 0.1MG TABLET PO PRN (05:13)
[2022-03-03] MEDS: METRONIDAZOLE 500MG TABLET PO SCH ×3 (05:13→21:52)
[2022-03-03 08:52] LABS: INR 1.1; PROTHROMBIN TIME 12.1 sec (9.6-11.0)
[2022-03-03] MEDS ORDERED: ENOXAPARIN 40MG/0.4ML SYR SUBCUT SCH (09:00)
[2022-03-03 09:16] LABS: BASOPHILS % 0.3 % (0.0-2.0); EOSINOPHILS % 0.6 % (0.0-5.0); HEMATOCRIT. 23.4 % (42.0-52.0); LYMPHOCYTES % 12.5 % (20.0-50.0); MEAN CORPUSCULAR HEMOGLOBIN 29.3 pg (28.0-32.0); MEAN CORPUSCULAR VOLUME 85.8 fL (80.0-94.0); MEAN PLATELET VOLUME 6.9 fl (7.4-10.4); MONOCYTES % 12.8 % (2.0-8.0); NEUTROPHILS % 73.8 % (40.0-76.0); PLATELET 301 x1000/uL (130-400); RED BLOOD CELL COUNT 2.73 mill/uL (4.7-6.1); RED CELL DISTRIBUTION WIDTH 17.2 % (11.6-14.6)
[2022-03-03 09:33] LABS: CREATINE KINASE MB FRACTION 3.5 ng/mL (0.5-3.6)
[2022-03-03] MEDS: GUAIFENESIN 600MG ER TABLET PO SCH ×2 (10:07→21:52)
[2022-03-03] MEDS: CLONIDINE 0.2MG TABLET PO PRN (11:25)
[2022-03-03] MEDS ORDERED: CLONIDINE 0.2MG TABLET PO PRN (14:45)
[2022-03-03] MEDS: CEFTRIAXONE 1,000 MG in DEXTROSE 5% WATER 50 ML IV SCH (18:32)
[2022-03-03] MEDS: AZITHROMYCIN 250 MG TABLET PO SCH (18:33)
[2022-03-03] MEDS ORDERED: EPOETIN ALFA-EPBX 10,000 UNIT/ML VIAL SUBCUT SCH (21:00)
[2022-03-03] MEDS ORDERED: LABETALOL HCL 200MG TABLET PO SCH (21:00)
[2022-03-03] MEDS: ENOXAPARIN 30MG/0.3ML SYR SUBCUT SCH (21:00)
[2022-03-04] VITALS (12 sets, daily range): BP systolic 107–197; BP diastolic 72–103
[2022-03-04] MEDS: IPRATROPIUM/ALBUTEROL 0.5-3(2.5)MG/3ML NEB HHN SCH ×4 (02:39→20:04)
[2022-03-04] MEDS: CLONIDINE 0.2MG TABLET PO PRN (03:13)
[2022-03-04] MEDS: CLONIDINE 0.2MG TABLET PO SCH ×3 (06:12→21:27)
[2022-03-04] MEDS: METRONIDAZOLE 500MG TABLET PO SCH ×3 (06:12→23:09)
[2022-03-04] MEDS: SEVELAMER CARBONATE 800 MG TABLET PO SCH ×3 (08:35→17:11)
[2022-03-04] MEDS: FOLIC ACID 1MG TABLET PO SCH (08:35)
[2022-03-04] MEDS: GUAIFENESIN 600MG ER TABLET PO SCH ×2 (08:36→21:13)
[2022-03-04] MEDS: AMLODIPINE 10MG TABLET PO SCH (08:37)
[2022-03-04] MEDS ORDERED: LABETALOL HCL 200MG TABLET PO SCH (09:00)
[2022-03-04 10:50] LABS: HEMATOCRIT. 22.8 % (42.0-52.0); HEMOGLOBIN. 7.7 g/dL (14.0-18.0); MEAN CORPUSCULAR HEMOGLOBIN 28.8 pg (28.0-32.0); MEAN CORPUSCULAR VOLUME 85.6 fL (80.0-94.0); MEAN PLATELET VOLUME 6.8 fl (7.4-10.4); PLATELET 279 x1000/uL (130-400); RED BLOOD CELL COUNT 2.66 mill/uL (4.7-6.1); RED CELL DISTRIBUTION WIDTH 16.7 % (11.6-14.6)
[2022-03-04 13:10] LABS: PLATELET ESTIMATE NORMAL
[2022-03-04] MEDS ORDERED: HYDRALAZINE HCL 50MG TABLET PO SCH (14:00)
[2022-03-04] MEDS: CEFTRIAXONE 1,000 MG in DEXTROSE 5% WATER 50 ML IV SCH (17:11)
[2022-03-04] MEDS: AZITHROMYCIN 250 MG TABLET PO SCH (17:11)
[2022-03-04] MEDS ORDERED: ATORVASTATIN CALCIUM 20MG TABLET PO SCH (21:00)
[2022-03-04] MEDS: ENOXAPARIN 30MG/0.3ML SYR SUBCUT SCH (21:00)
[2022-03-04] MEDS: LABETALOL HCL 200MG TABLET PO SCH (21:13)
[2022-03-05] MEDS: IPRATROPIUM/ALBUTEROL 0.5-3(2.5)MG/3ML NEB HHN SCH ×3 (01:45→15:28)
[2022-03-05 04:00] VITALS: BP 169/86
[2022-03-05 06:00] VITALS: BP 170/86
[2022-03-05] MEDS: CLONIDINE 0.2MG TABLET PO PRN (06:47)
[2022-03-05] MEDS: METRONIDAZOLE 500MG TABLET PO SCH ×2 (06:47→13:10)
[2022-03-05 08:00] VITALS: BP 158/72
[2022-03-05] MEDS: SEVELAMER CARBONATE 800 MG TABLET PO SCH ×2 (08:57→13:11)
[2022-03-05] MEDS: AMLODIPINE 10MG TABLET PO SCH (08:59)
[2022-03-05] MEDS: GUAIFENESIN 600MG ER TABLET PO SCH (08:59)
[2022-03-05] MEDS: LABETALOL HCL 200MG TABLET PO SCH (08:59)
[2022-03-05] MEDS: FOLIC ACID 1MG TABLET PO SCH (08:59)
[2022-03-05] MEDS: CLONIDINE 0.2MG TABLET PO SCH (09:00)
[2022-03-05] MEDS ORDERED: DOXAZOSIN MESYLATE 2MG TABLET PO SCH (10:00)
[2022-03-05 12:00] VITALS: BP 143/68
[2022-03-05 12:32] LABS: BASOPHILS % 0.5 % (0.0-2.0); EOSINOPHILS % 3.2 % (0.0-5.0); HEMATOCRIT. 21.9 % (42.0-52.0); HEMOGLOBIN. 7.3 g/dL (14.0-18.0); LYMPHOCYTES % 12.2 % (20.0-50.0); MEAN CORPUSCULAR VOLUME 87.2 fL (80.0-94.0); MEAN PLATELET VOLUME 6.8 fl (7.4-10.4); MONOCYTES % 14.3 % (2.0-8.0); NEUTROPHILS % 69.8 % (40.0-76.0); PLATELET 278 x1000/uL (130-400); RED BLOOD CELL COUNT 2.52 mill/uL (4.7-6.1); RED CELL DISTRIBUTION WIDTH 16.8 % (11.6-14.6)
[2022-03-05 14:00] VITALS: BP 151/87
[2022-03-05] MEDS ORDERED: LEVO500T90 PO (15:18)
[2022-03-05] MEDS ORDERED: AMLO10TA80 PO (15:25)
[2022-03-05] MEDS ORDERED: LABE300T3 PO (15:25)
[2022-03-05] MEDS ORDERED: CLON0.2T PO (15:25)
[2022-03-05] MEDS ORDERED: CLOP75TA33 PO (15:25)
[2022-03-05] MEDS ORDERED: ATOR20TA65 PO (15:25)
[2022-03-05 16:00] VITALS: BP_SYST 143; BP_SYST 152; BP_DIAS 68; BP_DIAS 95
== END 2022-03-05 16:30 | disposition home or self-care (01) | DRG 871 ==
LOC: ER 03:30 → 5EST 05:01 → ENRESERV 07:50
PROVIDERS: ADMIT Internal Medicine; ATTEND Internal Medicine
PROC: 30243N1 Transfusion of Nonautologous Red Blood Cells into Central Vein, Percutaneous Approach (ICD-10-PCS; principal; 2022-03-02)
PROC: 5A1D70Z Performance of Urinary Filtration, Intermittent, Less than 6 Hours Per Day (ICD-10-PCS; 2022-03-02)
PROC: 5A1D70Z Performance of Urinary Filtration, Intermittent, Less than 6 Hours Per Day (ICD-10-PCS; 2022-03-05)
DX: A41.9 Sepsis, unspecified organism (principal); I50.33 Acute on chronic diastolic (congestive) heart failure; J96.01 Acute respiratory failure with hypoxia; N18.6 End stage renal disease; J69.0 Pneumonitis due to inhalation of food and vomit; J44.1 Chronic obstructive pulmonary disease with (acute) exacerbation; J45.901 Unspecified asthma with (acute) exacerbation; I13.2 Hypertensive heart and chronic kidney disease with heart failure and with stage 5 chronic kidney disease, or end stage renal disease; D63.1 Anemia in chronic kidney disease; E78.5 Hyperlipidemia, unspecified; E83.51 Hypocalcemia; E87.5 Hyperkalemia; E11.22 Type 2 diabetes mellitus with diabetic chronic kidney disease; H54.8 Legal blindness, as defined in USA; Z53.29 Procedure and treatment not carried out because of patient's decision for other reasons; I16.0 Hypertensive urgency; Z20.822 Contact with and (suspected) exposure to COVID-19; Z28.310 Unvaccinated for COVID-19; Z79.82 Long term (current) use of aspirin; Z86.73 Personal history of transient ischemic attack (TIA), and cerebral infarction without residual deficits; Z91.15 Patient's noncompliance with renal dialysis; Z99.2 Dependence on renal dialysis; Z88.1 Allergy status to other antibiotic agents; Z88.0 Allergy status to penicillin
CPT/HCPCS: 36415; 71045; 80048; 80053; 80061; 82550; 82553; 82728; 83036; 83540; 83550; 83880; 84145; 84439; 84443; 84484; 85014; 85018; 85025; 85044; 85379; 86705; 86709; 86803; 86850; 86900; 86920; 87340; 87426; 93005; 93306; 94618; 94640; 94660; 99285; C9803; J0360; J0456; J0696; J0885; J1650; J1940; J2930; J3475; J7060; P9016; U0003; U0005

== ENCOUNTER 2022-03-07 17:02 | Emergency (ER) | payer MEDICARE, MEDICAID ==
[~2022-03-07] VITALS: Ht 167.6 cm; Wt 90.0 kg
[~2022-03-07 17:02] MED LIST changes: -AMLO10TA80 MT; +AMLO10TA80 PO; -LABE200T9 PO; +LABE300T3 PO; +LEVO500T90 PO
[2022-03-07 17:06] VITALS: BP 203/86
[2022-03-10] MEDS ORDERED: ISOS20TA57 MT (08:57)
== END 2022-03-07 20:53 | disposition left against medical advice (07) ==
LOC: ER 17:02
DX: Z53.21 Procedure and treatment not carried out due to patient leaving prior to being seen by health care provider (principal); J45.909 Unspecified asthma, uncomplicated; I12.9 Hypertensive chronic kidney disease with stage 1 through stage 4 chronic kidney disease, or unspecified chronic kidney disease; N18.9 Chronic kidney disease, unspecified; J44.9 Chronic obstructive pulmonary disease, unspecified

== ENCOUNTER 2022-03-20 06:04 | Inpatient (IN) | payer MEDICARE, MEDICAID ==
[~2022-03-20] VITALS: Ht 170.2 cm; Wt 81.2 kg
[2022-03-20] VITALS (8 sets, daily range): BP systolic 137–225; BP diastolic 65–170
[~2022-03-20 06:04] MED LIST changes: +ISOS20TA57 MT; -LEVO500T90 PO; -SODI15OR5 PO
[2022-03-20] MEDS ORDERED: HYDRALAZINE 20MG/ML VIAL IV ONE (08:30)
[2022-03-20] MEDS ORDERED: CALCIUM GLUCONATE 1,000 MG in DEXT 5% WATER 100 ML IV ONE (08:45)
[2022-03-20] MEDS ORDERED: SODIUM BICARBONATE 8.4% 1 MEQ/ML 50ML SYR IV ONE (08:45)
[2022-03-20] MEDS ORDERED: INSULIN REGULAR (HUMULIN R) 300UNITS/3ML VIAL IV ONE (08:45)
[2022-03-20] MEDS ORDERED: DEXTROSE 50% WATER 50ML SYRINGE IV ONE (08:45)
[2022-03-20] MEDS ORDERED: CALCIUM GLUCONATE 1GM PREMIX 100 ML IV NR (09:00)
[2022-03-20 09:30] LABS: HEMATOCRIT. 23.7 % (42.0-52.0); HEMOGLOBIN. 7.8 g/dL (14.0-18.0); MEAN CORPUSCULAR HEMOGLOBIN 28.8 pg (28.0-32.0); MEAN PLATELET VOLUME 6.8 fl (7.4-10.4); PLATELET 276 x1000/uL (130-400); RED CELL DISTRIBUTION WIDTH 16.4 % (11.6-14.6)
[2022-03-20 09:42] LABS: CHLORIDE 105 mEq/L (98-107)
[2022-03-20 10:17] LABS: PLATELET ESTIMATE NORMAL
[2022-03-20 11:35] LABS: HEPATITIS B SURFACE ANTIGEN NEGATIVE
[2022-03-20] MEDS: CLONIDINE 0.2MG TABLET PO PRN (14:07)
[2022-03-20] MEDS ORDERED: LABETALOL 5MG/ML SYR 20 MG/4 ML SYRINGE IV NR (14:30)
[2022-03-20] MEDS: AMLODIPINE 10MG TABLET PO SCH (14:59)
[2022-03-20] MEDS ORDERED: LOSARTAN POTASSIUM 100 MG TABLET PO SCH (15:30)
[2022-03-20] MEDS: NITROGLYCERIN OINT 1GM/INCH UDPKT TD SCH ×2 (16:00→22:00)
[2022-03-20] MEDS ORDERED: ACETAMINOPHEN 325MG TABLET PO PRN (18:00)
[2022-03-20] MEDS ORDERED: ONDANSETRON HCL 4MG/2ML INJ IV PRN (18:00)
[2022-03-20] MEDS ORDERED: IPRATROPIUM/ALBUTEROL 0.5-3(2.5)MG/3ML NEB NEB PRN (18:00)
[2022-03-20] MEDS ORDERED: ENOXAPARIN 40MG/0.4ML SYR SUBCUT SCH (18:00)
[2022-03-20] MEDS: LABETALOL HCL 300MG TABLET PO SCH (18:15)
[2022-03-20] MEDS: ASPIRIN 81MG EC TABLET PO SCH (18:15)
[2022-03-20] MEDS: SEVELAMER CARBONATE 800 MG TABLET PO SCH (18:15)
[2022-03-20] MEDS: ENOXAPARIN 30MG/0.3ML SYR SUBCUT SCH ×2 (20:00→20:46)
[2022-03-20] MEDS: ISOSORBIDE MONONITRATE 20MG TABLET PO SCH (20:45)
[2022-03-20] MEDS ORDERED: METOPROLOL TARTRATE 100MG TABLET PO SCH (21:00)
[2022-03-20] MEDS ORDERED: LABETALOL HCL 100MG TABLET PO SCH (21:00)
[2022-03-21] VITALS (9 sets, daily range): BP systolic 103–202; BP diastolic 50–93
[2022-03-21] MEDS: NITROGLYCERIN OINT 1GM/INCH UDPKT TD SCH ×2 (06:00→13:01)
[2022-03-21] MEDS: SEVELAMER CARBONATE 800 MG TABLET PO SCH ×3 (08:37→17:13)
[2022-03-21] MEDS: ASPIRIN 81MG EC TABLET PO SCH (08:37)
[2022-03-21] MEDS: ISOSORBIDE MONONITRATE 20MG TABLET PO SCH (08:47)
[2022-03-21] MEDS: AMLODIPINE 10MG TABLET PO SCH (08:48)
[2022-03-21] MEDS ORDERED: CLOPIDOGREL 75MG TABLET PO SCH (09:00)
[2022-03-21] MEDS ORDERED: ATORVASTATIN CALCIUM 20MG TABLET PO SCH (09:00)
[2022-03-21] MEDS: LABETALOL HCL 300MG TABLET PO SCH (13:00)
[2022-03-21 13:49] LABS: HEMATOCRIT. 23.6 % (42.0-52.0); HEMOGLOBIN. 7.8 g/dL (14.0-18.0); MEAN CORPUSCULAR HEMOGLOBIN 29.3 pg (28.0-32.0); MEAN CORPUSCULAR VOLUME 89.3 fL (80.0-94.0); MEAN PLATELET VOLUME 7.3 fl (7.4-10.4); PLATELET 273 x1000/uL (130-400); RED BLOOD CELL COUNT 2.65 mill/uL (4.7-6.1); RED CELL DISTRIBUTION WIDTH 16.3 % (11.6-14.6)
[2022-03-21 13:52] LABS: CHLORIDE 102 mEq/L (98-107)
[2022-03-21 14:22] LABS: PLATELET ESTIMATE NORMAL
[2022-03-21] MEDS: CLONIDINE 0.2MG TABLET PO PRN (17:15)
[2022-03-21] MEDS ORDERED: CLOP75TA33 PO (17:43)
[2022-03-21] MEDS ORDERED: ASPI-1406 PO (17:43)
[2022-03-21] MEDS ORDERED: LABE300T3 PO (17:43)
[2022-03-21] MEDS ORDERED: ATOR20TA65 PO (17:43)
[2022-03-21] MEDS ORDERED: AMLO10TA80 PO (17:43)
[2022-03-21] MEDS ORDERED: ISOS20TA57 MT (17:43)
[2022-03-21] MEDS ORDERED: CLON0.2T PO (17:43)
[2022-03-21] MEDS ORDERED: SEVE800T8 PO (17:43)
[2022-03-21] MEDS ORDERED: METO5TAB86 MT (17:44)
[2022-03-21] MEDS ORDERED: CLONIDINE 0.3MG TABLET PO SCH (18:15)
== END 2022-03-21 18:40 | disposition home or self-care (01) | DRG 189 ==
LOC: ER 06:14 → 5EST 08:40 → EDBEDREQTM 08:46 → EDBEDREQ 08:46 → ENRESERV 12:15
PROVIDERS: ADMIT Internal Medicine; ATTEND Internal Medicine
PROC: 5A09357 Assistance with Respiratory Ventilation, Less than 24 Consecutive Hours, Continuous Positive Airway Pressure (ICD-10-PCS; principal; 2022-03-20)
PROC: 5A1D70Z Performance of Urinary Filtration, Intermittent, Less than 6 Hours Per Day (ICD-10-PCS; 2022-03-20)
PROC: 5A1D70Z Performance of Urinary Filtration, Intermittent, Less than 6 Hours Per Day (ICD-10-PCS; 2022-03-21)
DX: J96.01 Acute respiratory failure with hypoxia (principal); I21.4 Non-ST elevation (NSTEMI) myocardial infarction; I50.33 Acute on chronic diastolic (congestive) heart failure; N18.6 End stage renal disease; Q23.1 Congenital insufficiency of aortic valve; I42.9 Cardiomyopathy, unspecified; I13.2 Hypertensive heart and chronic kidney disease with heart failure and with stage 5 chronic kidney disease, or end stage renal disease; D64.9 Anemia, unspecified; E87.5 Hyperkalemia; H54.8 Legal blindness, as defined in USA; I44.7 Left bundle-branch block, unspecified; I25.10 Atherosclerotic heart disease of native coronary artery without angina pectoris; I16.0 Hypertensive urgency; Z20.822 Contact with and (suspected) exposure to COVID-19; E78.5 Hyperlipidemia, unspecified; R00.0 Tachycardia, unspecified; E11.22 Type 2 diabetes mellitus with diabetic chronic kidney disease; Z88.0 Allergy status to penicillin; Z88.8 Allergy status to other drugs, medicaments and biological substances; Z79.899 Other long term (current) drug therapy; Z79.82 Long term (current) use of aspirin; Z91.19 Patient's noncompliance with other medical treatment and regimen; Z99.2 Dependence on renal dialysis; Z79.02 Long term (current) use of antithrombotics/antiplatelets
CPT/HCPCS: 36415; 71045; 80053; 80061; 83735; 83880; 84145; 84484; 85025; 86705; 86709; 86803; 87340; 87426; 93005; 94660; 99291; C9803; J0360; J0610; J1650; J1815; J3490; J7060

== ENCOUNTER 2022-03-27 20:37 | Inpatient (IN) | payer MEDICARE, MEDICAID ==
[~2022-03-27] VITALS: Ht 170.2 cm; Wt 74.8 kg
[~2022-03-27 20:37] MED LIST changes: +METO5TAB86 MT
[2022-03-27] MEDS ORDERED: SODIUM CHLORIDE 0.9% 1000ML BAG (SEPSIS BOLUS) IV ONE (21:00)
[2022-03-28 00:05] LABS: CHLORIDE 125 mEq/L (98-107)
[2022-03-28 00:09] LABS: INR 1.2; PROTHROMBIN TIME 12.8 sec (9.6-11.0)
[2022-03-28] MEDS ORDERED: FUROSEMIDE 100MG/10ML VIAL IV NR (00:09)
[2022-03-28] MEDS ORDERED: ALBUTEROL (0.083%) 2.5MG/3ML NEB HHN NR (00:15)
[2022-03-28] MEDS ORDERED: DILTIAZEM HCL 5MG/ML 5ML VIAL IV NR (00:15)
[2022-03-28] MEDS ORDERED: INSULIN REGULAR (HUMULIN R) 300UNITS/3ML VIAL IV NR (00:15)
[2022-03-28] MEDS ORDERED: SODIUM BICARBONATE 8.4% 1 MEQ/ML 50ML SYR IV NR (00:15)
[2022-03-28] MEDS ORDERED: CALCIUM CHLORIDE 1GM/10ML SYR IV NR (00:15)
[2022-03-28] MEDS ORDERED: DEXTROSE 50% WATER 50ML SYRINGE IV NR (00:15)
[2022-03-28 00:16] LABS: BASOPHILS % 0.2 % (0.0-2.0); EOSINOPHILS % 0.1 % (0.0-5.0); HEMATOCRIT. 28.2 % (42.0-52.0); HEMOGLOBIN. 8.5 g/dL (14.0-18.0); LYMPHOCYTES % 8.2 % (20.0-50.0); MEAN CORPUSCULAR HEMOGLOBIN 29.1 pg (28.0-32.0); MEAN CORPUSCULAR VOLUME 95.9 fL (80.0-94.0); MEAN PLATELET VOLUME 8.4 fl (7.4-10.4); MONOCYTES % 8.8 % (2.0-8.0); NEUTROPHILS % 82.7 % (40.0-76.0); PLATELET 359 x1000/uL (130-400); RED BLOOD CELL COUNT 2.94 mill/uL (4.7-6.1); RED CELL DISTRIBUTION WIDTH 17.2 % (11.6-14.6)
[2022-03-28 00:28] LABS: BETA HYDROXYBUTYRATE 1.4 mMol/L (0.0-0.3); ETHANOL BLOOD < 10 mg/dL
[2022-03-28 00:38] LABS: CREATINE KINASE 208 IU/L (39-308)
[2022-03-28] MEDS ORDERED: ASPIRIN 325MG EC TABLET PO ONE (00:45)
[2022-03-28] MEDS ORDERED: PIPERACILLIN/TAZOBACTAM 3.375GM/50ML PREMIX IV ONE (01:30)
[2022-03-28] MEDS ORDERED: VANCOMYCIN 1G PREMIX 200 ML IV NR (01:30)
[2022-03-28] MEDS ORDERED: PIPERACILLIN/TAZ 3.375G PREMIX 50 ML IV NR (01:45)
[2022-03-28] MEDS ORDERED: IPRATROPIUM/ALBUTEROL 0.5-3(2.5)MG/3ML NEB HHN PRN (02:00)
[2022-03-28] MEDS ORDERED: DOCUSATE SODIUM 100MG CAPSULE PO PRN (02:00)
[2022-03-28] MEDS ORDERED: ACETAMINOPHEN 650MG SUPP PR PRN ×2 (02:00)
[2022-03-28] MEDS ORDERED: DILTIAZEM HCL 5MG/ML 5ML VIAL IV ONE (02:00)
[2022-03-28] MEDS ORDERED: CLONIDINE 0.1MG TABLET PO PRN (02:00)
[2022-03-28] MEDS ORDERED: GUAIFENESIN 200MG/10ML SUGAR FREE UDC PO PRN (02:00)
[2022-03-28] MEDS ORDERED: ACETAMINOPHEN 325MG TABLET PO PRN ×2 (02:00)
[2022-03-28] MEDS ORDERED: HYDROCODONE/ACETAMINOPHEN 5/325MG TABLET PO PRN (02:00)
[2022-03-28] MEDS ORDERED: MAGNESIUM/ALUMINUM HYDROXIDE/SIMETHICONE 30ML UDC PO PRN (02:00)
[2022-03-28] MEDS ORDERED: MORPHINE SULFATE 2 MG/ML CPJ (NOT FOR IM USE) IV PRN (02:00)
[2022-03-28 05:53] LABS: BASOPHILS % 0.2 % (0.0-2.0); EOSINOPHILS % 0.1 % (0.0-5.0); LYMPHOCYTES % 7.1 % (20.0-50.0); MEAN CORPUSCULAR HEMOGLOBIN 28.4 pg (28.0-32.0); MEAN PLATELET VOLUME 7.7 fl (7.4-10.4); MONOCYTES % 10.3 % (2.0-8.0); NEUTROPHILS % 82.3 % (40.0-76.0); PLATELET 367 x1000/uL (130-400); RED BLOOD CELL COUNT 3.16 mill/uL (4.7-6.1)
[2022-03-28 06:00] LABS: CHLORIDE 125 mEq/L (98-107)
[2022-03-28 06:11] LABS: CREATINE KINASE 207 IU/L (39-308); HDL CHOLESTEROL 22 mg/dL (40-59); LDL CHOLESTEROL 47 mg/dL (5-100)
[2022-03-28] MEDS ORDERED: SODIUM CHLORIDE 0.9% 500 ML IV SCH (08:00)
[2022-03-28] MEDS ORDERED: DEXT 5%/0.45% NACL 1000ML 1,000 ML IV SCH (08:00)
[2022-03-28] MEDS ORDERED: NALOXONE HCL 0.4MG/ML VIAL IV PRN (08:30)
[2022-03-28] MEDS ORDERED: DILTIAZEM 125MG/125ML PMX 125 ML IV PRN ×2 (12:30→23:30)
[2022-03-28] MEDS: AMLODIPINE 10MG TABLET PO SCH (15:24)
[2022-03-28] MEDS ORDERED: DIGOXIN 500MCG/2ML AMP IV PRN (15:45)
[2022-03-28 17:03] VITALS: BP 158/97
[2022-03-28 17:33] VITALS: BP 158/97
[2022-03-28] MEDS ORDERED: HALOPERIDOL LACTATE 5MG/ML VIAL IM PRN (18:15)
[2022-03-28] MEDS: DEXTROSE 5% WATER 1,000 ML IV SCH (18:20)
[2022-03-28] MEDS ORDERED: LACTULOSE 20G/30ML UDC PO NR (19:00)
[2022-03-28] MEDS ORDERED: SODIUM POLYSTYRENE SULFONATE 15 G/60 ML BOT PO NR (19:00)
[2022-03-28 20:00] VITALS: BP 105/70
[2022-03-28] MEDS ORDERED: CEFEPIME 1,000 MG in DEXTROSE 5% WATER 50 ML IV SCH (20:00)
[2022-03-28] MEDS: ONDANSETRON HCL 4MG/2ML INJ IV PRN (21:01)
[2022-03-28 22:00] VITALS: BP 125/80
[2022-03-29] VITALS (42 sets, daily range): BP systolic 81–169; BP diastolic 31–107
[2022-03-29] MEDS: ONDANSETRON HCL 4MG/2ML INJ IV PRN (04:49)
[2022-03-29] MEDS: DEXTROSE 5% WATER 1,000 ML IV SCH (06:29)
[2022-03-29] MEDS: AMLODIPINE 10MG TABLET PO SCH (08:39)
[2022-03-29] MEDS: SODIUM CHLORIDE 0.45% 1,000 ML IV SCH ×2 (10:05→16:21)
[2022-03-29] MEDS ORDERED: DILTIAZEM HCL 60MG TABLET PO SCH (12:00)
[2022-03-29] MEDS ORDERED: DIGOXIN 500MCG/2ML AMP IV PRN (13:00)
[2022-03-29] MEDS ORDERED: PHENYLEPHRINE 50 MG in DEXT 5% WATER 245 ML IV PRN (14:30)
[2022-03-29] MEDS ORDERED: AMIODARONE HCL 900 MG in DEXT 5% WATER 482 ML IV SCH (15:15)
[2022-03-29] MEDS ORDERED: DILTIAZEM 125MG/125ML PMX 100 ML IV PRN (15:15)
[2022-03-29] MEDS ORDERED: AMIODARONE HCL 150 MG in DEXT 5% WATER 100 ML IV NR (15:30)
[2022-03-29] MEDS: DILTIAZEM HCL 90MG TABLET PO SCH ×2 (17:18→23:14)
[2022-03-29] MEDS ORDERED: DIGOXIN 500MCG/2ML AMP IV SCH (18:00)
[2022-03-29] MEDS ORDERED: VANCOMYCIN 500MG PREMIX 100 ML IV NR (18:00)
[2022-03-29 19:07] LABS: HEMATOCRIT. 25.3 % (42.0-52.0); HEMOGLOBIN. 7.8 g/dL (14.0-18.0); MEAN CORPUSCULAR HEMOGLOBIN 28.7 pg (28.0-32.0); MEAN CORPUSCULAR VOLUME 92.8 fL (80.0-94.0); MEAN PLATELET VOLUME 8.2 fl (7.4-10.4); PLATELET 290 x1000/uL (130-400); RED BLOOD CELL COUNT 2.72 mill/uL (4.7-6.1)
[2022-03-29 19:58] LABS: HEPATITIS B SURFACE ANTIGEN NEGATIVE
[2022-03-29 20:41] LABS: PLATELET ESTIMATE NORMAL
[2022-03-29] MEDS: CEFEPIME 1,000 MG in DEXTROSE 5% WATER 50 ML IV SCH (21:10)
[2022-03-30] VITALS (45 sets, daily range): BP systolic 106–185; BP diastolic 39–112
[2022-03-30 04:22] LABS: PHOSPHORUS 10.4 mg/dL (2.5-4.9)
[2022-03-30 05:46] LABS: BASOPHILS % 0.2 % (0.0-2.0); EOSINOPHILS % 1.4 % (0.0-5.0); HEMATOCRIT. 26.3 % (42.0-52.0); HEMOGLOBIN. 8.4 g/dL (14.0-18.0); LYMPHOCYTES % 9.2 % (20.0-50.0); MEAN CORPUSCULAR HEMOGLOBIN 29.2 pg (28.0-32.0); MEAN CORPUSCULAR VOLUME 91.3 fL (80.0-94.0); MEAN PLATELET VOLUME 8.3 fl (7.4-10.4); MONOCYTES % 13.5 % (2.0-8.0); NEUTROPHILS % 75.7 % (40.0-76.0); PLATELET 296 x1000/uL (130-400); RED BLOOD CELL COUNT 2.88 mill/uL (4.7-6.1); RED CELL DISTRIBUTION WIDTH 15.9 % (11.6-14.6)
[2022-03-30 06:03] LABS: CHLORIDE 102 mEq/L (98-107)
[2022-03-30] MEDS: DILTIAZEM HCL 90MG TABLET PO SCH (06:23)
[2022-03-30] MEDS: AMIODARONE HCL 200 MG TABLET PO SCH ×2 (09:33→20:02)
[2022-03-30] MEDS: CALCIUM ACETATE 667MG CAPSULE PO SCH ×3 (09:33→17:02)
[2022-03-30] MEDS: MIDODRINE HCL 2.5MG TABLET PO SCH ×3 (09:45→16:33)
[2022-03-30] MEDS ORDERED: CEFEPIME 1,000 MG in DEXTROSE 5% WATER 50 ML IV SCH (14:00)
[2022-03-30] MEDS ORDERED: VANCOMYCIN 750MG PREMIX 150 ML IV NR (21:00)
[2022-03-30] MEDS: ONDANSETRON HCL 4MG/2ML INJ IV PRN (21:17)
[2022-03-30] MEDS: METRONIDAZOLE 250MG TABLET PO SCH ×2 (22:09→22:21)
[2022-03-30] MEDS: CEFEPIME 1,000 MG in DEXTROSE 5% WATER 50 ML IV SCH (22:09)
[2022-03-31] VITALS (12 sets, daily range): BP systolic 126–168; BP diastolic 62–96
[2022-03-31] MEDS: AMIODARONE HCL 200 MG TABLET PO SCH ×2 (08:12→21:30)
[2022-03-31] MEDS: CALCIUM ACETATE 667MG CAPSULE PO SCH ×3 (08:12→17:00)
[2022-03-31] MEDS: MIDODRINE HCL 2.5MG TABLET PO SCH ×3 (08:18→17:00)
[2022-03-31 09:43] LABS: HEMATOCRIT. 25.1 % (42.0-52.0); HEMOGLOBIN. 8.1 g/dL (14.0-18.0); MEAN CORPUSCULAR HEMOGLOBIN 29.4 pg (28.0-32.0); MEAN PLATELET VOLUME 8.3 fl (7.4-10.4); PLATELET 244 x1000/uL (130-400); RED BLOOD CELL COUNT 2.76 mill/uL (4.7-6.1); RED CELL DISTRIBUTION WIDTH 15.4 % (11.6-14.6)
[2022-03-31 10:58] LABS: PLATELET ESTIMATE NORMAL
[2022-03-31] MEDS: METRONIDAZOLE 250MG TABLET PO SCH ×2 (13:20→22:04)
[2022-03-31] MEDS: ONDANSETRON HCL 4MG/2ML INJ IV PRN (16:56)
[2022-03-31] MEDS: CEFEPIME 1,000 MG in DEXTROSE 5% WATER 50 ML IV SCH (20:01)
[2022-03-31] MEDS: METOCLOPRAMIDE HCL 10MG/2ML VIAL IV SCH (22:04)
[2022-04-01] VITALS (12 sets, daily range): BP systolic 125–153; BP diastolic 59–104
[2022-04-01 06:28] LABS: HEMATOCRIT. 25.5 % (42.0-52.0); HEMOGLOBIN. 8.2 g/dL (14.0-18.0); MEAN CORPUSCULAR HEMOGLOBIN 29.3 pg (28.0-32.0); MEAN CORPUSCULAR VOLUME 91.2 fL (80.0-94.0); MEAN PLATELET VOLUME 8.7 fl (7.4-10.4); PLATELET 259 x1000/uL (130-400); RED BLOOD CELL COUNT 2.79 mill/uL (4.7-6.1); RED CELL DISTRIBUTION WIDTH 15.5 % (11.6-14.6)
[2022-04-01] MEDS: METOCLOPRAMIDE HCL 10MG/2ML VIAL IV SCH ×3 (06:38→21:33)
[2022-04-01] MEDS: METRONIDAZOLE 250MG TABLET PO SCH ×3 (06:38→21:33)
[2022-04-01] MEDS: MIDODRINE HCL 2.5MG TABLET PO SCH ×3 (08:47→16:50)
[2022-04-01] MEDS: CALCIUM ACETATE 667MG CAPSULE PO SCH ×3 (08:48→17:37)
[2022-04-01] MEDS: AMIODARONE HCL 200 MG TABLET PO SCH ×2 (08:48→21:33)
[2022-04-01 09:29] LABS: PLATELET ESTIMATE NORMAL
[2022-04-01] MEDS: CEFEPIME 1,000 MG in DEXTROSE 5% WATER 50 ML IV SCH (20:04)
[2022-04-02] VITALS (12 sets, daily range): BP systolic 111–163; BP diastolic 56–92
[2022-04-02] MEDS: METOCLOPRAMIDE HCL 10MG/2ML VIAL IV SCH ×3 (06:00→22:17)
[2022-04-02] MEDS: METRONIDAZOLE 250MG TABLET PO SCH ×3 (06:40→22:17)
[2022-04-02 07:33] LABS: HEMATOCRIT. 22.3 % (42.0-52.0); HEMOGLOBIN. 7.2 g/dL (14.0-18.0); MEAN CORPUSCULAR HEMOGLOBIN 29.1 pg (28.0-32.0); PLATELET 235 x1000/uL (130-400); RED BLOOD CELL COUNT 2.48 mill/uL (4.7-6.1)
[2022-04-02] MEDS: MIDODRINE HCL 2.5MG TABLET PO SCH ×3 (08:53→16:54)
[2022-04-02] MEDS: CALCIUM ACETATE 667MG CAPSULE PO SCH ×3 (08:53→16:51)
[2022-04-02] MEDS: AMIODARONE HCL 200 MG TABLET PO SCH ×2 (08:55→22:17)
[2022-04-02] MEDS ORDERED: LIDOCAINE HCL/PF 1% 10 MG/ML 5ML VIAL ONE (09:18)
[2022-04-02] MEDS: ONDANSETRON HCL 4MG/2ML INJ IV PRN (13:52)
[2022-04-02] MEDS ORDERED: DIATR MEGLU/DIATRIZOATE SOLN 30ML PO SCH (14:15)
[2022-04-02 16:46] LABS: PLATELET ESTIMATE NORMAL
[2022-04-02] MEDS: CEFEPIME 1,000 MG in DEXTROSE 5% WATER 50 ML IV SCH (19:56)
[2022-04-03] VITALS (11 sets, daily range): BP systolic 110–156; BP diastolic 68–95
[2022-04-03] MEDS: METRONIDAZOLE 250MG TABLET PO SCH ×2 (05:55→14:00)
[2022-04-03] MEDS: METOCLOPRAMIDE HCL 10MG/2ML VIAL IV SCH ×2 (05:55→14:00)
[2022-04-03 06:18] LABS: HEMATOCRIT. 22.6 % (42.0-52.0); HEMOGLOBIN. 7.3 g/dL (14.0-18.0); MEAN CORPUSCULAR HEMOGLOBIN 29.3 pg (28.0-32.0); MEAN CORPUSCULAR VOLUME 90.1 fL (80.0-94.0); MEAN PLATELET VOLUME 8.8 fl (7.4-10.4); PLATELET 259 x1000/uL (130-400); RED BLOOD CELL COUNT 2.51 mill/uL (4.7-6.1); RED CELL DISTRIBUTION WIDTH 15.3 % (11.6-14.6)
[2022-04-03] MEDS: AMIODARONE HCL 200 MG TABLET PO SCH (08:03)
[2022-04-03] MEDS: CALCIUM ACETATE 667MG CAPSULE PO SCH ×3 (08:03→18:30)
[2022-04-03] MEDS: MIDODRINE HCL 2.5MG TABLET PO SCH (08:06)
[2022-04-03] MEDS ORDERED: LACTULOSE 20G/30ML UDC PO NR ×2 (10:00→16:45)
[2022-04-03] MEDS: ONDANSETRON HCL 4MG/2ML INJ IV PRN (11:30)
[2022-04-03] MEDS ORDERED: CEFTRIAXONE 2 G PREMIX 50 ML IV SCH (15:45)
[2022-04-03] MEDS ORDERED: VANCOMYCIN 1500MG in DEXTROSE 5% WATER 250ML IV SCH (18:00)
[2022-04-03] MEDS: CEFTRIAXONE 2 G in DEXTROSE 5% WATER 50 ML IV SCH (18:30)
[2022-04-03 19:14] LABS: PLATELET ESTIMATE NORMAL
[2022-04-04] VITALS (19 sets, daily range): BP systolic 104–152; BP diastolic 54–128
[2022-04-04] MEDS: AMIODARONE HCL 200 MG TABLET PO SCH ×3 (01:03→22:30)
[2022-04-04] MEDS: METRONIDAZOLE 250MG TABLET PO SCH ×4 (01:04→22:31)
[2022-04-04] MEDS: METOCLOPRAMIDE HCL 10MG/2ML VIAL IV SCH ×4 (01:05→22:31)
[2022-04-04] MEDS: CALCIUM ACETATE 667MG CAPSULE PO SCH ×3 (09:00→17:38)
[2022-04-04 09:03] LABS: HEMATOCRIT. 21.2 % (42.0-52.0); MEAN CORPUSCULAR HEMOGLOBIN 29.3 pg (28.0-32.0); MEAN CORPUSCULAR VOLUME 89.9 fL (80.0-94.0); MEAN PLATELET VOLUME 8.4 fl (7.4-10.4); PLATELET 269 x1000/uL (130-400); RED BLOOD CELL COUNT 2.35 mill/uL (4.7-6.1); RED CELL DISTRIBUTION WIDTH 15.4 % (11.6-14.6)
[2022-04-04 09:17] LABS: CHLORIDE 94 mEq/L (98-107)
[2022-04-04 09:19] LABS: ETHANOL BLOOD < 10 mg/dL
[2022-04-04 09:30] LABS: HEMOGLOBIN. 6.9 g/dL (14.0-18.0)
[2022-04-04 12:52] LABS: PLATELET ESTIMATE NORMAL
[2022-04-04 15:07] LABS: FOLIC ACID (FOLATE) SERUM 4.8 ng/mL (>5.38)
[2022-04-04 16:35] LABS: TOTAL IRON BINDING CAPACITY 240 ug/dL (250-450)
[2022-04-04] MEDS: CEFTRIAXONE 2 G in DEXTROSE 5% WATER 50 ML IV SCH (17:37)
[2022-04-04 19:07] LABS: HEMATOCRIT 24.6 % (42.0-52.0); HEMOGLOBIN 8.2 g/dL (14.0-18.0)
[2022-04-04 19:18] LABS: INR 1.1; PROTHROMBIN TIME 11.6 sec (9.6-11.0)
[2022-04-04 19:47] LABS: FIBRINOGEN > 850 mg/dL (200-400)
[2022-04-05] VITALS (11 sets, daily range): BP systolic 95–150; BP diastolic 62–91
[2022-04-05] MEDS: METOCLOPRAMIDE HCL 10MG/2ML VIAL IV SCH ×2 (05:02→14:10)
[2022-04-05 07:09] LABS: HEMATOCRIT. 27.2 % (42.0-52.0); MEAN CORPUSCULAR VOLUME 88.2 fL (80.0-94.0); MEAN PLATELET VOLUME 8.1 fl (7.4-10.4); PLATELET 286 x1000/uL (130-400); RED BLOOD CELL COUNT 3.09 mill/uL (4.7-6.1)
[2022-04-05 07:11] LABS: INR 1.1; PROTHROMBIN TIME 11.3 sec (9.6-11.0)
[2022-04-05] MEDS: AMIODARONE HCL 200 MG TABLET PO SCH (09:40)
[2022-04-05] MEDS: CALCIUM ACETATE 667MG CAPSULE PO SCH ×3 (09:40→16:43)
[2022-04-05 17:12] LABS: PLATELET ESTIMATE NORMAL
[2022-04-05] MEDS: CEFTRIAXONE 2 G in DEXTROSE 5% WATER 50 ML IV SCH (18:00)
== END 2022-04-05 18:30 | DRG 871 ==
LOC: ER 20:37 → MICUSO 03-28 01:28 → 5EST 03-28 16:59 → MICUNO 03-29 15:00 → 5EST 03-30 17:24
PROVIDERS: ADMIT Specialist; ATTEND Specialist
PROC: 5A1D70Z Performance of Urinary Filtration, Intermittent, Less than 6 Hours Per Day (ICD-10-PCS; 2022-03-28)
PROC: 02HV33Z Insertion of Infusion Device into Superior Vena Cava, Percutaneous Approach (ICD-10-PCS; principal; 2022-03-29)
PROC: B548ZZA Ultrasonography of Superior Vena Cava, Guidance (ICD-10-PCS; 2022-03-29)
PROC: 5A1D70Z Performance of Urinary Filtration, Intermittent, Less than 6 Hours Per Day (ICD-10-PCS; 2022-03-30)
PROC: 02HV33Z Insertion of Infusion Device into Superior Vena Cava, Percutaneous Approach (ICD-10-PCS; 2022-04-02)
PROC: B5181ZA Fluoroscopy of Superior Vena Cava using Low Osmolar Contrast, Guidance (ICD-10-PCS; 2022-04-02)
PROC: B548ZZA Ultrasonography of Superior Vena Cava, Guidance (ICD-10-PCS; 2022-04-02)
PROC: 5A1D70Z Performance of Urinary Filtration, Intermittent, Less than 6 Hours Per Day (ICD-10-PCS; 2022-04-02)
PROC: 30233N1 Transfusion of Nonautologous Red Blood Cells into Peripheral Vein, Percutaneous Approach (ICD-10-PCS; 2022-04-04)
DX: A41.9 Sepsis, unspecified organism (principal); G92.8 Other toxic encephalopathy; I21.4 Non-ST elevation (NSTEMI) myocardial infarction; N18.6 End stage renal disease; J69.0 Pneumonitis due to inhalation of food and vomit; J96.01 Acute respiratory failure with hypoxia; I63.81 Other cerebral infarction due to occlusion or stenosis of small artery; N17.9 Acute kidney failure, unspecified; E87.1 Hypo-osmolality and hyponatremia; E87.3 Alkalosis; I13.2 Hypertensive heart and chronic kidney disease with heart failure and with stage 5 chronic kidney disease, or end stage renal disease; E87.0 Hyperosmolality and hypernatremia; I42.9 Cardiomyopathy, unspecified; I50.30 Unspecified diastolic (congestive) heart failure; E86.0 Dehydration; Z20.822 Contact with and (suspected) exposure to COVID-19; E87.5 Hyperkalemia; E87.8 Other disorders of electrolyte and fluid balance, not elsewhere classified; E11.22 Type 2 diabetes mellitus with diabetic chronic kidney disease; E78.5 Hyperlipidemia, unspecified; J44.9 Chronic obstructive pulmonary disease, unspecified; D63.1 Anemia in chronic kidney disease; I48.0 Paroxysmal atrial fibrillation; I25.10 Atherosclerotic heart disease of native coronary artery without angina pectoris; I95.9 Hypotension, unspecified; E78.00 Pure hypercholesterolemia, unspecified; R11.15 Cyclical vomiting syndrome unrelated to migraine; R26.89 Other abnormalities of gait and mobility; H54.8 Legal blindness, as defined in USA; Z88.0 Allergy status to penicillin; Z99.2 Dependence on renal dialysis; Z91.15 Patient's noncompliance with renal dialysis; I25.2 Old myocardial infarction; Z79.82 Long term (current) use of aspirin; Z91.19 Patient's noncompliance with other medical treatment and regimen
CPT/HCPCS: 36415; 36573; 70551; 71045; 74018; 74176; 80048; 80053; 80061; 80076; 80162; 80202; 80307; 80320; 82010; 82140; 82550; 82607; 82728; 82746; 82962; 83036; 83540; 83550; 83605; 83735; 83880; 84100; 84145; 84439; 84443; 84481; 84484; 85014; 85018; 85025; 85044; 85049; 85384; 85651; 86705; 86709; 86803; 86850; 86900; 86920; 87340; 87426; 93005; 93308; 93880; 97162; 97166; 99291; A6261; C1725; J0282; J0692; J0696; J1160; J1815; J1940; J2405; J2543; J2765; J3370; J3490; J7030; J7060; P9016; G0480

== ENCOUNTER 2022-04-16 12:47 | Emergency (ER) | payer MEDICARE, MEDICAID ==
[~2022-04-16] VITALS: Ht 167.6 cm; Wt 73.0 kg
[2022-04-16 12:48] VITALS: BP 154/66
== END 2022-04-16 15:38 | disposition left against medical advice (07) ==
LOC: ER 12:47
DX: R06.02 Shortness of breath (principal); R11.2 Nausea with vomiting, unspecified
CPT/HCPCS: 93005; 99283

== ENCOUNTER 2022-05-22 14:48 | Inpatient (IN) | payer MEDICARE, MEDICAID ==
[~2022-05-22] VITALS: Ht 177.8 cm; Wt 85.7 kg
[2022-05-22] VITALS (13 sets, daily range): BP systolic 112–172; BP diastolic 23–84
[~2022-05-22 14:48] MED LIST changes: +AMI2 PO; -ASPI-1406 PO; -CLOP75TA33 PO; -LABE300T3 PO; +LABE300T36 MT
[2022-05-22 16:10] LABS: MEAN CORPUSCULAR HEMOGLOBIN 28.8 pg (28.0-32.0); MEAN CORPUSCULAR VOLUME 90.6 fL (80.0-94.0); MEAN PLATELET VOLUME 7.3 fl (7.4-10.4); PLATELET 262 x1000/uL (130-400); RED BLOOD CELL COUNT 1.88 mill/uL (4.7-6.1); RED CELL DISTRIBUTION WIDTH 19.9 % (11.6-14.6)
[2022-05-22 16:16] LABS: HEMATOCRIT. 17.1 % (42.0-52.0); HEMOGLOBIN. 5.4 g/dL (14.0-18.0)
[2022-05-22 16:25] LABS: CHLORIDE 107 mEq/L (98-107)
[2022-05-22] MEDS ORDERED: FUROSEMIDE 20MG/2ML VIAL IV NR (16:41)
[2022-05-22] MEDS ORDERED: INSULIN REGULAR (HUMULIN R) 300UNITS/3ML VIAL IV NR (16:45)
[2022-05-22] MEDS ORDERED: DEXTROSE 50% WATER 50ML SYRINGE IV NR (16:45)
[2022-05-22] MEDS ORDERED: ALBUTEROL (0.083%) 2.5MG/3ML NEB HHN NR (16:45)
[2022-05-22] MEDS ORDERED: SODIUM BICARBONATE 8.4% 1 MEQ/ML 50ML SYR IV NR (16:45)
[2022-05-22] MEDS ORDERED: CALCIUM GLUCONATE 100MG/ML 10ML VIAL IV NR (17:00)
[2022-05-22] MEDS ORDERED: MANNITOL 12.5G (25%) VIAL 50ML IV NR (17:15)
[2022-05-22 17:52] LABS: PLATELET ESTIMATE NORMAL
[2022-05-22] MEDS ORDERED: MAGNESIUM/ALUMINUM HYDROXIDE/SIMETHICONE 30ML UDC PO PRN (18:00)
[2022-05-22] MEDS ORDERED: DOCUSATE SODIUM 100MG CAPSULE PO PRN (18:00)
[2022-05-22] MEDS ORDERED: TRAMADOL 50MG TABLET PO PRN (18:00)
[2022-05-22] MEDS ORDERED: GUAIFENESIN 200MG/10ML SUGAR FREE UDC PO PRN (18:00)
[2022-05-22] MEDS ORDERED: ONDANSETRON HCL 4MG/2ML INJ IV PRN (18:00)
[2022-05-22] MEDS ORDERED: ACETAMINOPHEN 325MG TABLET PO PRN (18:00)
[2022-05-22] MEDS ORDERED: HYDROCODONE/ACETAMINOPHEN 5/325MG TABLET PO PRN (18:00)
[2022-05-22] MEDS ORDERED: ENOXAPARIN 40MG/0.4ML SYR SUBCUT SCH (18:00)
[2022-05-22] MEDS ORDERED: HYDROMORPHONE HCL/PF 2MG/ML CPJ IV PRN (18:00)
[2022-05-22] MEDS ORDERED: NALOXONE HCL 0.4MG/ML VIAL IV PRN (18:15)
[2022-05-22 18:20] LABS: HEPATITIS B SURFACE ANTIGEN NEGATIVE
[2022-05-23] VITALS (11 sets, daily range): BP systolic 123–155; BP diastolic 57–97
[2022-05-23] MEDS: AMLODIPINE 10MG TABLET PO SCH (09:00)
[2022-05-23] MEDS ORDERED: ENOXAPARIN 30MG/0.3ML SYR SUBCUT SCH (09:00)
[2022-05-23] MEDS: HALOPERIDOL LACTATE 5MG/ML VIAL IM PRN (20:55)
[2022-05-24] VITALS: BP 124/75
[2022-05-24 04:00] VITALS: BP 104/50
[2022-05-24] MEDS: HALOPERIDOL LACTATE 5MG/ML VIAL IM PRN (04:30)
[2022-05-24 08:00] VITALS: BP 111/40
[2022-05-24] MEDS: AMLODIPINE 10MG TABLET PO SCH (09:00)
[2022-05-24 16:00] VITALS: BP 114/42
[2022-05-24 23:37] VITALS: BP 125/72
[2022-05-25] VITALS (12 sets, daily range): BP systolic 110–156; BP diastolic 50–86
[2022-05-25] MEDS: AMLODIPINE 10MG TABLET PO SCH (09:44)
[2022-05-25] MEDS ORDERED: LIDOCAINE HCL 1% 30ML VIAL (10MG/ML) ONE (12:55)
[2022-05-25 18:12] LABS: MEAN CORPUSCULAR HEMOGLOBIN 29.4 pg (28.0-32.0); MEAN CORPUSCULAR VOLUME 88.8 fL (80.0-94.0); MEAN PLATELET VOLUME 7.3 fl (7.4-10.4); PLATELET 277 x1000/uL (130-400); RED BLOOD CELL COUNT 2.21 mill/uL (4.7-6.1); RED CELL DISTRIBUTION WIDTH 19.2 % (11.6-14.6)
[2022-05-25 18:24] LABS: HEMOGLOBIN. 6.5 g/dL (14.0-18.0)
[2022-05-25 18:25] LABS: HEMATOCRIT. 19.6 % (42.0-52.0)
[2022-05-25 18:42] LABS: INR 1.1; PARTIAL THROMBOPLASTIN TIME 29.5 sec (23.4-31.0); PROTHROMBIN TIME 11.8 sec (9.6-11.0)
[2022-05-25 19:14] LABS: PLATELET ESTIMATE NORMAL
[2022-05-26 08:00] VITALS: BP 110/59
[2022-05-26] MEDS: AMLODIPINE 10MG TABLET PO SCH (09:00)
[2022-05-26 16:00] VITALS: BP 122/64
[2022-05-26 20:00] VITALS: BP 144/78
[2022-05-27 08:00] VITALS: BP 130/54
[2022-05-27 08:45] VITALS: BP 119/59
[2022-05-27] MEDS: AMLODIPINE 10MG TABLET PO SCH (10:20)
[2022-05-27] MEDS: SULFAMETHOXAZOLE/TRIMETHOPRIM 400/80MG TAB PO SCH ×2 (11:37→20:41)
[2022-05-27 11:54] VITALS: BP 138/62
[2022-05-27 16:00] VITALS: BP 115/59
[2022-05-27 20:00] VITALS: BP 112/60
[2022-05-28] VITALS (10 sets, daily range): BP systolic 95–136; BP diastolic 45–76
[2022-05-28] MEDS: SULFAMETHOXAZOLE/TRIMETHOPRIM 400/80MG TAB PO SCH ×2 (08:18→08:34)
[2022-05-28] MEDS: AMLODIPINE 10MG TABLET PO SCH ×2 (08:25→08:34)
[2022-05-28] MEDS ORDERED: GENTAMICIN SULFATE 140 MG in SODIUM CHLORIDE 0.9% 100 ML IV NR (13:30)
== END 2022-05-28 17:48 | DRG 70 ==
LOC: ER 14:48 → SUPCPDRO 17:12 → 8WST 17:53 → EDBEDREQ 17:55 → EDBEDREQTM 17:55 → ENRESERV 18:00 → 8WST 05-23 11:13 → UNDODISIN 05-26 11:00 → 8WST 05-26 12:04
PROVIDERS: ADMIT Hospitalist; ATTEND Hospitalist
PROC: 30233N1 Transfusion of Nonautologous Red Blood Cells into Peripheral Vein, Percutaneous Approach (ICD-10-PCS; principal; 2022-05-22)
PROC: 5A1D70Z Performance of Urinary Filtration, Intermittent, Less than 6 Hours Per Day (ICD-10-PCS; 2022-05-22)
PROC: 5A1D70Z Performance of Urinary Filtration, Intermittent, Less than 6 Hours Per Day (ICD-10-PCS; 2022-05-23)
PROC: 5A1D70Z Performance of Urinary Filtration, Intermittent, Less than 6 Hours Per Day (ICD-10-PCS; 2022-05-23)
PROC: 5A1D70Z Performance of Urinary Filtration, Intermittent, Less than 6 Hours Per Day (ICD-10-PCS; 2022-05-25)
PROC: 0HQBXZZ Repair Right Upper Arm Skin, External Approach (ICD-10-PCS; 2022-05-25)
PROC: 5A1D70Z Performance of Urinary Filtration, Intermittent, Less than 6 Hours Per Day (ICD-10-PCS; 2022-05-28)
DX: G93.49 Other encephalopathy (principal); E43 Unspecified severe protein-calorie malnutrition; I50.33 Acute on chronic diastolic (congestive) heart failure; N18.6 End stage renal disease; I13.2 Hypertensive heart and chronic kidney disease with heart failure and with stage 5 chronic kidney disease, or end stage renal disease; R78.81 Bacteremia; E87.5 Hyperkalemia; E11.22 Type 2 diabetes mellitus with diabetic chronic kidney disease; D63.1 Anemia in chronic kidney disease; E11.319 Type 2 diabetes mellitus with unspecified diabetic retinopathy without macular edema; J44.9 Chronic obstructive pulmonary disease, unspecified; E78.5 Hyperlipidemia, unspecified; Z20.822 Contact with and (suspected) exposure to COVID-19; Z78.1 Physical restraint status; Z86.73 Personal history of transient ischemic attack (TIA), and cerebral infarction without residual deficits; Z99.2 Dependence on renal dialysis; Z91.199 Patient's noncompliance with other medical treatment and regimen due to unspecified reason; Z88.0 Allergy status to penicillin; Z88.8 Allergy status to other drugs, medicaments and biological substances; Z91.15 Patient's noncompliance with renal dialysis; Z68.27 Body mass index [BMI] 27.0-27.9, adult
CPT/HCPCS: 12001; 36415; 71045; 80048; 80053; 83735; 83880; 84484; 85025; 86705; 86709; 86803; 86850; 86900; 86920; 87340; 87426; 90935; 93005; 93306; 99291; A6261; J0610; J1580; J1630; J1815; J1940; J2150; J3490; J7050; P9016; A4315